=== PATIENT | female | born 1940 | race African-American/Black ===

== ENCOUNTER 2017-04-18 13:27 | Outpatient (CLI) | payer MEDICARE, MEDICAID ==
--- NOTE | 2017-04-18 15:57 | MRI ---
MRI OF THE BRAIN WITHOUT CONTRAST 04/18/17 COMPARISON: 08/18/15 HISTORY: Right sided brain lesion. Followup exam. Likely cavernoma with hemorrhage. TECHNIQUE: Multiplanar and multisequence MRI images were obtained of the brain without contrast. FINDINGS: There is a lesion in the right parietal lobe which demonstrates susceptibility artifact consistent wi th hemosiderin deposition. This measures approximately 1.2 cm in greatest dimension. There is a small amount of adjacent high FLAIR signal. The previously seen high T1 signal within the lesion has resol fidencio. There are scattered foci of high FLAIR signal in the subcortical and periventricular white matte r, likely secondary to small vessel ischemic disease. There is no evidence of hydrocephalus, intracranial hemorrhage or extra-axial fluid collection. No re stricted diffusion seen to suggest an acute infarction. The expected flow voids are present. The cory us callosum, pituitary, and craniocervical junction are unremarkable. IMPRESSION: Stable right parietal lobe mass which represent a small cavernoma. The blood products have evolved wi th the resorption of the high T1 component of the blood products seen on the prior exam. POS: [facility]
== END 2017-04-18 13:28 | disposition home or self-care (01) ==
LOC: TBSIIMAG 13:27
PROVIDERS: ATTEND Surgery
DX: D33.2 Benign neoplasm of brain, unspecified (principal); R51 Headache; R91.8 Other nonspecific abnormal finding of lung field
CPT/HCPCS: 70551; 70553

== ENCOUNTER 2017-07-12 09:11 | Outpatient (CLI) | payer MEDICARE, MEDICAID ==
--- NOTE | 2017-07-12 12:20 | CT ---
CT ABDOMEN AND PELVIS WITH CONTRAST: HISTORY: Right lower quadrant. COMPARISON: 03/23/15. FINDINGS: Mild atelectasis is present at the lung bases. Gallbladder is surgically absent with associated dist ention of the biliary system. There is prominent calcification throughout the arterial structures. Diverticula arise from the colon without adjacent inflammation. Abdominal fat protrudes into an umbi lical hernia that does not contain bowel. There are prominent degenerative changes of the lumbar spi ne. Projecting inferiorly from the cecal base is a fluid-filled tubular structure with subtlely thickened durham and adjacent stranding. It measures up to 0.8 cm. No free air or free fluid. IMPRESSION: 1. Mild noncomplicated acute appendicitis. 2. Diverticulosis. 3. Atherosclerosis. Findings were called to Lorena at the office of Dr. Borrego at 1117 hours. CODE CR POS: [facility]
== END 2017-07-12 09:12 | disposition home or self-care (01) ==
LOC: CT 09:11
PROVIDERS: ATTEND Family Medicine
DX: R10.9 Unspecified abdominal pain (principal); K35.80 Unspecified acute appendicitis; K57.90 Diverticulosis of intestine, part unspecified, without perforation or abscess without bleeding; I70.90 Unspecified atherosclerosis
CPT/HCPCS: 74177

== ENCOUNTER 2017-07-13 13:40 | Inpatient (IN) | payer MEDICARE, MEDICAID ==
[2017-07-13] MEDS ORDERED: Lidocaine 1% PF 5 ML VIAL ONE (14:46)
[2017-07-13] MEDS ORDERED: Glycopyrrolate 0.2 MG/ML 5 ML SYRINGE ONE (14:46)
[2017-07-13] MEDS ORDERED: Ondansetron HCl/PF 4 MG/2 ML Vial ONE (14:46)
[2017-07-13] MEDS ORDERED: Esmolol 100 MG/10 ML VIAL ONE (14:46)
[2017-07-13] MEDS ORDERED: PHENYLEPHRINE-NS 100 MCG/ML 10 ML SYRINGE ONE (14:46)
[2017-07-13] MEDS ORDERED: Ketorolac Tromethamine 30 MG/ML VIAL ONE ×2 (14:46→16:03)
[2017-07-13] MEDS ORDERED: PROPOFOL 200 MG/20 ML VIAL ONE (14:46)
[2017-07-13 14:55] LABS: #Basophils 0.1 thou/uL (0.0-0.2); #Eosinphils 0.2 thou/uL (0.0-0.7); #Lymphocytes 2.1 thou/uL (1.20-3.40); #Monocytes 0.7 thou/uL (0.11-0.59); #Neutrophils 3.1 thou/uL (1.40-6.50); %Basophils 1.1 % (0.0-1.0); %Eosinophils 2.6 % (0.0-10.0); %Lymphocytes 34.5 % (21.0-51.0); %Monocytes 11.8 % (0.0-10.0); Hemoglobin 10.9 g/dL (12.0-16.0); Mean Corpuscular HGB CONC 35.1 g/dL (32.0-36.0); Mean Corpuscular Hemoglobin 30.3 pg (27.0-31.0); Mean Corpuscular Volume 86.3 fl (81.0-99.0); Mean Platelet Volume 9.4 fL (7.4-10.4); Platelet Count 165 thou/uL (130-400); RBC Distribution Width 13.7 % (11.5-14.5); Red Blood Cell (RBC) Count 3.59 mill/uL (4.20-5.40); White Blood Cell (WBC) Count 6.2 thou/uL (4.8-10.8)
[2017-07-13 15:12] LABS: ALT (SGPT) Less than 7 U/L (8-55); AST (SGOT) 18 U/L (5-34); Alkaline Phosphatase 132 U/L (40-150); Anion Gap 13 mmol/L (10-20); BUN (Urea Nitrogen) 35 mg/dL (9.8-20.1); Bilirubin, Total 0.3 mg/dL (0.2-1.2); Calc. Creatinine Clearance 0 mL/min (70-130); Calcium 9.4 mg/dL (7.8-10.44); Carbon Dioxide 28 mmol/L (23-31); Chloride 100 mmol/L (98-107); Estimated GFR-MDRD 40; Globulin 4.2 g/dL (2.4-3.5); Glucose 94 mg/dL (83-110); Potassium 3.7 mmol/L (3.5-5.1); Protein, Total 8.2 g/dL (6.0-8.3); Sodium 137 mmol/L (136-145)
--- NOTE | 2017-07-13 15:47 | HP ---
HISTORY OF PRESENT ILLNESS: A 77-year-old black female who lives in [place], lives alone. She is wido wed. She has had generalized abdominal pain, seen Dr. Sheila Borrego about this. Dr. Sheila Borrego obtai faith a CAT scan revealing appendicitis. Dr. Borrego called me and patient was sent to outpatient surgery . The patient has exquisite right lower quadrant tenderness, positive Rovsing's. She suffered anore fletcher and nausea. She has not had a fever. Laboratories obtained reveal baseline chronic kidney disea se. BUN 28, creatinine 1.51, sodium 142 and potassium 4.1. White count 6 and hemoglobin 10.9. ALLERGIES: PEANUTS, HYDROCODONE causes rash and PECANS. MEDICATIONS: Allopurinol, atorvastatin, lovastatin, Calcitriol, carbidopa and levodopa, colchicine, dicyclomine, donepezil, ergocalciferol, Lasix, gabapentin, Zaroxolyn, multivitamin, paroxetine, potas sium chloride, clonidine, sulfasalazine, tizanidine and tramadol. TOBACCO: None. ALCOHOL: None. PAST SURGICAL HISTORY: Cholecystectomy laparoscopic in 2014, total abdominal hysterectomy, bilateral salpingo-oophorectomy in 1971, eye surgery and colonoscopies in the past. PAST MEDICAL HISTORY: Hypertension; Parkinson's; diastolic dysfunction; normal echocardiogram, 60% t o 65% ejection fraction last year; pulmonary hypertension; rheumatoid arthritis; gout; dyslipidemia a nd obesity. REVIEW OF SYSTEMS: Ten-point noncontributory otherwise. PHYSICAL EXAMINATION: HEENT: Sclerae nonicteric. SKIN: Nonjaundiced. LUNGS: Clear to auscultation. CARDIAC: Regular rate and rhythm without murmur or gallop. ABDOMEN: Soft, tenderness in right lower quadrant, guarding, rebound. EXTREMITIES: Unremarkable. ASSESSMENT AND PLAN: Acute appendicitis. Recommend laparoscopic video appendectomy. Risk of infect ion, bleeding, visceral injury and open procedure discussed, she consents. We will plan home as an o utpatient if situation allows. Questions answered.
[2017-07-13] MEDS ORDERED: Scopolamine 1.5 mg/72 hour Patch ONE (16:02)
[2017-07-13] MEDS ORDERED: Piperacillin/Tazobactam 3.375 GM in Sodium Chloride 0.9% 100 ML IVPB SCH (16:15)
[2017-07-13] MEDS ORDERED: Ketorolac Tromethamine 30 MG/ML VIAL IVP SCH (16:15)
[2017-07-13] MEDS ORDERED: Acetaminophen 1,000 MG in Premix Bag 1 BAG IVPB SCH (16:15)
[2017-07-13] MEDS ORDERED: Scopolamine 1.5 mg/72 hour Patch TOP SCH (16:15)
[2017-07-13] MEDS ORDERED: Bupivacaine HCl 0.5%/Epinephrine 1:200,000/PF 30 ml Vial ONE (17:40)
[2017-07-13] MEDS ORDERED: Midazolam HCl 2 mg/2 ml Vial ONE (18:02)
[2017-07-13] MEDS ORDERED: Fentanyl 250 MCG/5 ML VIAL ONE ×2 (18:02→20:44)
[2017-07-13] MEDS ORDERED: HYDROmorphone 0.5 MG/0.5 ML SYRINGE ONE (18:52)
[2017-07-13] MEDS ORDERED: Dextrose 5% in Water 1,000 ML IV PRN (19:01)
[2017-07-13] MEDS ORDERED: hydrALAZINE 20 MG/ML VIAL SLOW IVP PRN (19:01)
[2017-07-13] MEDS ORDERED: Ondansetron ODT 4 MG TAB PO PRN (19:01)
[2017-07-13] MEDS ORDERED: Morphine 4 MG/ML Carpuject IVP PRN (19:01)
[2017-07-13] MEDS ORDERED: Dextrose 50% Abboject 50 ML SYRINGE SLOW IVP PRN (19:01)
[2017-07-13] MEDS ORDERED: Ondansetron HCl/PF 4 MG/2 ML Vial IVP PRN (19:01)
[2017-07-13] MEDS ORDERED: traMADol HCl 50 MG TAB PO PRN ×2 (19:05→19:06)
[2017-07-13] MEDS ORDERED: Acetaminophen 500 MG TAB PO PRN (19:05)
[2017-07-13] MEDS ORDERED: cloNIDine 0.1 MG TAB PO PRN (19:06)
[2017-07-13] MEDS ORDERED: Dicyclomine 20 MG TAB PO PRN (19:06)
[2017-07-13] MEDS ORDERED: Metolazone 2.5 MG TAB PO PRN (19:06)
[2017-07-13] MEDS ORDERED: Colchicine 0.6 MG TAB PO PRN (19:30)
[2017-07-13] MEDS ORDERED: D5 1/2 NS w/20 mEq KCL 1,000 ML ONE (20:50)
[2017-07-13] MEDS ORDERED: Donepezil HCl 5 MG TAB PO SCH (21:00)
[2017-07-13] MEDS ORDERED: Famotidine 20 MG TAB PO SCH (21:00)
[2017-07-13] MEDS ORDERED: tiZANidine HCl 4 MG TAB PO PRN (21:00)
[2017-07-13] MEDS ORDERED: Atorvastatin Calcium 40 MG TAB PO SCH (21:00)
--- NOTE | 2017-07-13 22:57 | OP ---
DATE OF OPERATION: 07/13/2017 PREOPERATIVE DIAGNOSIS: Acute appendicitis. POSTOPERATIVE DIAGNOSIS: Acute appendicitis. PROCEDURE: Laparoscopic video appendectomy. SURGEON: Solis Garcia M.D. ANESTHESIA: General, local, 0.5% Marcaine with epinephrine, 30 mL. PROCEDURE IN DETAIL: Patient was taken to the operating room, where under general anesthesia, North catheter placed at the beginning of the procedure, removed at the end. Abdomen was prepared with Chl oraPrep, draped in routine fashion. Local anesthetic 0.5% Marcaine with epinephrine infiltrated into skin and subcutaneous tissue about all port sites. Infraumbilical incision made. Pneumoperitoneum to 15 mmHg obtained with a Veress needle, replacing it with a 5-port laparoscope inserted. Right lat eral subcostal incision made and a 5-port placed. Suprapubic incision made in a 12-port plate. Appe ndix was acutely inflamed with early appendicitis. Mesoappendix was taken down with the LigaSure to the stump of the appendix, dividing Endo-MICA blue load 45-stapler. Stapled cecal stump was bleeding and Hemoclips applied obtaining good hemostasis. Irrigant and pneumoperitoneum evacuated after GraNe e needle was used to approximate the suprapubic fascia with 0 Vicryl. All instruments removed and al l skin incisions approximated with interrupted subdermal 4-0 Monocryl and DermaGlue applied.
[2017-07-13] MEDS: Sodium Chloride 0.9% 1,000 ML IV SCH (23:22)
[2017-07-13] MEDS: D5 1/2 NS w/20 mEq KCL 1,000 ML IV SCH (23:22)
[2017-07-13] MEDS: Colchicine 0.6 MG TAB PO SCH (23:27)
[2017-07-13] MEDS: Furosemide 80 MG TAB PO SCH (23:27)
[2017-07-13] MEDS: Carbidopa/Levodopa CR 50-200 mg Tablet PO SCH (23:27)
[2017-07-14] MEDS: Sodium Chloride 0.9% 1,000 ML IV SCH ×2 (01:41→09:29)
[2017-07-14 01:54] VITALS: BMI 40.2
[2017-07-14] MEDS: traMADol HCl 50 MG TAB PO PRN ×2 (05:51→12:21)
[2017-07-14] MEDS: D5 1/2 NS w/20 mEq KCL 1,000 ML IV SCH (05:56)
[2017-07-14 06:11] LABS: #Eosinphils 0.2 thou/uL (0.0-0.7); #Lymphocytes 1.8 thou/uL (1.20-3.40); #Monocytes 0.7 thou/uL (0.11-0.59); #Neutrophils 3.3 thou/uL (1.40-6.50); %Basophils 0.5 % (0.0-1.0); %Eosinophils 2.9 % (0.0-10.0); %Lymphocytes 29.9 % (21.0-51.0); %Monocytes 11.1 % (0.0-10.0); %Neutrophils 55.5 % (42.0-75.0); Hemoglobin 10.8 g/dL (12.0-16.0); Mean Corpuscular HGB CONC 34.8 g/dL (32.0-36.0); Mean Corpuscular Hemoglobin 30.2 pg (27.0-31.0); Mean Corpuscular Volume 86.8 fl (81.0-99.0); Platelet Count 165 thou/uL (130-400); RBC Distribution Width 13.7 % (11.5-14.5); Red Blood Cell (RBC) Count 3.57 mill/uL (4.20-5.40); White Blood Cell (WBC) Count 5.9 thou/uL (4.8-10.8)
[2017-07-14 06:22] LABS: Anion Gap 14 mmol/L (10-20); BUN (Urea Nitrogen) 35 mg/dL (9.8-20.1); Calc. Creatinine Clearance 39 mL/min (70-130); Calcium 8.9 mg/dL (7.8-10.44); Carbon Dioxide 23 mmol/L (23-31); Chloride 103 mmol/L (98-107); Estimated GFR-MDRD 34; Glucose 134 mg/dL (83-110); Sodium 136 mmol/L (136-145)
[2017-07-14] MEDS ORDERED: sulfaSALAzine 500 MG TAB PO SCH (08:00)
[2017-07-14] MEDS ORDERED: PARoxetine 20 MG TAB PO SCH (09:00)
[2017-07-14] MEDS ORDERED: Calcitriol 0.25 MCG CAP PO SCH (09:00)
[2017-07-14] MEDS ORDERED: Enoxaparin Sodium 30 MG/0.3 ML SYRINGE SC SCH (09:00)
[2017-07-14] MEDS ORDERED: Potassium Chloride 8 MEQ TAB PO SCH (09:00)
[2017-07-14] MEDS ORDERED: Allopurinol 100 MG TAB PO SCH (09:00)
[2017-07-14] MEDS ORDERED: Multivit, Therapeutic 1 TAB PO SCH (09:00)
[2017-07-14] MEDS ORDERED: Polyethylene Glycol 3350 17 GM Packet PO SCH (09:00)
[2017-07-14] MEDS: Carbidopa/Levodopa CR 50-200 mg Tablet PO SCH ×2 (09:28→16:00)
[2017-07-14] MEDS: Colchicine 0.6 MG TAB PO SCH (09:28)
[2017-07-14] MEDS: Furosemide 80 MG TAB PO SCH (09:28)
[2017-07-14 16:09] VITALS: BP 144/72; TEMP 98.4
--- NOTE | 2017-07-14 21:07 | PRG ---
DATE OF SERVICE: 07/14/2017 SUBJECTIVE: Nicola Mooney has done well after laparoscopic appendectomy. Her labs are normal th is morning. OBJECTIVE: VITAL SIGNS: Temperature 98.4 degrees, heart rate 83, blood pressure 144/72. LUNGS: Clear to auscultation. CARDIAC: Regular rate and rhythm without murmur or gallop. ABDOMEN: Soft, nontender. Surgical laparoscopic trocar site wounds look good. Expected postoperati ve tenderness. LABORATORY DATA: White count is 5, hemoglobin 10.8. Basic metabolic profile normal with chronic alexandr al insufficiency numbers, 35 of BUN and creatinine 1.74 and normal for her. The patient tolerated he r diet. She currently has some pain control with analgesics. ASSESSMENT AND PLAN: Doing well postoperatively. Her family is present and the patient wants to go home. She will be active, ambulatory and diet as tolerated. No activity restrictions. Follow up in my office in 2 weeks
--- NOTE | 2017-07-14 23:10 | DIS ---
DATE OF ADMISSION: 07/13/2017 DATE OF DISCHARGE: 07/14/2017 DISCHARGE DIAGNOSIS: Acute appendicitis. PROCEDURES: Laparoscopic video appendectomy. DISCHARGE MEDICATIONS: Resume home medications. List extensive, please see her history and physical . In addition, she will take Ultram, Motrin, and Tylenol as able. She will follow up in my office i n 2 weeks. Diet and activity as tolerated. No activity restrictions. Encourage to be ambulatory. HOSPITAL COURSE: Ms. Mooney is a 77-year-old female followed by Dr. Sheila Borrego for some time zahida g abdominal pain, obtain a CAT scan, verifying appendicitis. Patient's although having a chronic abd ominal pain developed worsening pain in the last day or two. Dr. Borrego send her to my office. I sent her to the hospital and then laparoscopic appendectomy was performed, early appendicitis noted. Pos toperative antibiotics are not necessary. Patient because it was late at night and living alone, she demanded admission, she was kept overnight and did well and discharged to home with follow up in my office in 2-3 weeks. Resume her home medications and activities.
[2017-07-16] MEDS ORDERED: Ergocalciferol 1.25 MG(50,000 UNITS) CAP PO SCH (09:00)
--- NOTE | 2017-08-16 19:30 | EKG ---
Test Reason : PREOP Blood Pressure : / mmHG Vent. Rate : 084 BPM Atrial Rate : 084 BPM P-R Int : 156 ms QRS Dur : 088 ms QT Int : 386 ms P-R-T Axes : 072 047 059 degrees QTc Int : 456 ms Normal sinus rhythm Nonspecific T wave abnormality Abnormal ECG When compared with ECG of 30-DEC-2014 16:15, QT has shortened Confirmed by DR. Russell FELIZ ([id number]) on 08/16/2017 7:29:53 PM Referred By: CHRIS Confirmed By:DR. Russell FELIZ
== END 2017-07-14 18:05 | disposition home or self-care (01) | DRG 343 ==
LOC: SDC 13:40 → SURG A 20:46
PROVIDERS: ADMIT Specialist; ATTEND Specialist
PROC: 0DTJ4ZZ Resection of Appendix, Percutaneous Endoscopic Approach (ICD-10-PCS; principal; 2017-07-13)
DX: K35.80 Unspecified acute appendicitis (principal); E11.22 Type 2 diabetes mellitus with diabetic chronic kidney disease; G20 Parkinson's disease; I27.20 Pulmonary hypertension, unspecified; R63.0 Anorexia; I12.9 Hypertensive chronic kidney disease with stage 1 through stage 4 chronic kidney disease, or unspecified chronic kidney disease; N18.9 Chronic kidney disease, unspecified; M10.9 Gout, unspecified; E66.9 Obesity, unspecified; E78.5 Hyperlipidemia, unspecified; M06.9 Rheumatoid arthritis, unspecified; Z68.37 Body mass index [BMI] 37.0-37.9, adult; R10.9 Unspecified abdominal pain; K57.90 Diverticulosis of intestine, part unspecified, without perforation or abscess without bleeding; I70.90 Unspecified atherosclerosis
CPT/HCPCS: 36415; 74177; 80048; 80053; 82565; 85025; 88304; 93005; 93010; 96374; J0131; J0670; J1170; J1650; J1885; J2001; J2250; J2270; J2405; J2543; J2704; J3010; J7050

== ENCOUNTER 2017-10-03 12:50 | Emergency (ER) | payer MEDICARE, MEDICAID ==
[2017-10-03] MEDS ORDERED: Acetaminophen 500 MG TAB ONE (13:15)
--- NOTE | 2017-10-03 13:36 | CT ---
HEAD CT WITHOUT CONTRAST: Date: 10/03/17 HISTORY: Injury. Pain. Tripped and fell at home. COMPARISON: 02/01/15. TECHNIQUE: A noncontrast head CT is performed from the skull base to the skull vertex. FINDINGS: Persistent hyperdensity along the medial right frontal lobe, close to the vertex. Small cavernoma is favored given chronicity. No definite parenchymal hemorrhage. No extra-axial hematoma. No midline petr ft. Basilar cisterns are patent. Age-appropriate atrophy. Cortical chatterjee-white matter differentiation is preserved. No evidence of hydrocephalus. Calvarium is intact. Frontal scalp hematoma is present. Subcutaneous em physema due to laceration is noted. No obvious radiopaque foreign bodies. Adequate aeration of the si nuses and mastoid air cells. Stable hypodensity along the anterior falx due to intracranial lipoma. IMPRESSION: Post-traumatic scalp hematoma. No intracranial post-traumatic sequelae. POS: [facility]
[2017-10-03] MEDS ORDERED: Lidocaine 1% w/Epinephrine 1:100K 20 ML VIAL ONE (14:21)
--- NOTE | 2017-10-03 15:08 | CT ---
CT CERVICAL SPINE WITHOUT CONTRAST: Date: 10/03/17 HISTORY: Trauma. Pain. COMPARISON: CT cervical spine from 2015. FINDINGS: There is reversal of normal cervical lordosis, worsened from the comparison examination. This is due to osseous fusion and bony bridging from C5-C6. There is also posterior element fusion C2-3 on the ri ght and left. Posterior osseous fusion C4-5 on the left. Advanced degenerative disc space height loss at C6-7, as well as T1-2, progressed from the comparison examination. The lung apices are clear. The thyroid is heterogeneous with a hypodense mass. The occipital condyles are intact, although degenerative. Atlanto-occipital joints severely degenerat sera. The skull base is without fracture. Odontoid process is without fracture. No acute displaced fracture of the cervical spine. IMPRESSION: 1. Severe degenerative changes. No acute fracture or malalignment. 2. Hypodense mass in right lobe of thyroid, for which a nonemergent follow-up ultrasound is recommen ded. POS: [facility]
== END 2017-10-03 16:47 | disposition home or self-care (01) ==
LOC: ERS 12:50
DX: S01.81XA Laceration without foreign body of other part of head, initial encounter (principal); E07.89 Other specified disorders of thyroid; M46.92 Unspecified inflammatory spondylopathy, cervical region; K21.9 Gastro-esophageal reflux disease without esophagitis; M10.9 Gout, unspecified; I11.0 Hypertensive heart disease with heart failure; I50.9 Heart failure, unspecified; F32.9 Major depressive disorder, single episode, unspecified; W01.0XXA Fall on same level from slipping, tripping and stumbling without subsequent striking against object, initial encounter
CPT/HCPCS: 12013; 70450; 72125; J2001

== ENCOUNTER 2017-10-18 09:16 | Outpatient (CLI) | payer MEDICARE, MEDICAID ==
--- NOTE | 2017-10-18 11:26 | CT ---
CT OF ABDOMEN AND PELVIS PERFORMED WITHOUT CONTRAST ENHANCEMENT: Date: 10/18/17 HISTORY: Right lower quadrant pain and diarrhea. History of an appendectomy in July 2017. COMPARISON: CT examination of 07/12/17. FINDINGS: Lung bases show some minimal atelectasis or scar. The liver, spleen, and pancreas regions appear unremarkable on this noncontrast study. The gallbladde r has been removed. Right and left adrenal glands are normal in appearance. Hypodensity within the posterior cortex of th e right kidney is statistically most likely a cyst. No obstruction or evidence of renal or ureteral c alculi. No significant periaortic or mesenteric adenopathy. Some colonic diverticulosis is noted. CT of pelvis was performed without contrast enhancement. Post appendectomy changes are present. No si gns of any abscess or fluid collection. Postop hysterectomy changes are seen. Small, fat-containing p eriumbilical hernia is present. There is scoliotic change to the spine and marked arthritic changes to the lower lumbar spine. IMPRESSION: 1. Colonic diverticulosis. 2. Small, fat-containing periumbilical hernia. 3. Post appendectomy change. 4. No acute abnormalities of the abdomen or pelvis. POS: [facility]
== END 2017-10-18 09:17 | disposition home or self-care (01) ==
LOC: CT 09:16
PROVIDERS: ATTEND Specialist
DX: R10.2 Pelvic and perineal pain (principal); Z90.49 Acquired absence of other specified parts of digestive tract; K57.30 Diverticulosis of large intestine without perforation or abscess without bleeding; K42.9 Umbilical hernia without obstruction or gangrene; Z98.890 Other specified postprocedural states
CPT/HCPCS: 74176

== ENCOUNTER 2017-10-31 09:40 | Outpatient (CLI) | payer MEDICARE, MEDICAID ==
[2017-10-31] MEDS ORDERED: Gadobenate Dimeglumine 529 MG/1 ML (20ML VIAL) ONE (10:04)
--- NOTE | 2017-10-31 12:58 | MRI ---
BRAIN MRI WITH AND WITHOUT CONTRAST: 10/31/2017 HISTORY: Re-evaluate brain lesion. COMPARISON: 01/24/2017 and 08/18/2015 TECHNIQUE: Multiplanar, multisequence MR imaging of the brain is provided with and without contrast. FINDINGS: The diffusion-weighted imaging demonstrates no evidence for acute infarction. There is a focal area of blooming artifact involving the posteromedial aspect of the right frontal lo be, as seen on prior imaging, most consistent with a stable cavernoma. On the axial FLAIR imaging, there is increased signal intensity involving a few cortical sulci in the posterior right parietal occipital lobe, medially, best seen on axial image 22, a new finding. There is no midline shift or mass effect. No ventricular enlargement is seen. The imaged paranasal sinuses and mastoid air cells are well aerated. Arterial flow voids at the axia l level of the skull base demonstrates a relatively hypoplastic basilar artery and vertebral arteries . Post contrast imaging demonstrates a small area of linear enhancement into the above described focus of blooming artifact in the posteromedial right frontal region. There are a few new foci of increased T2 signal within the subcortical white matter of the occipital/ parietal lobe on the right, in the region of the above described new increased signal intensity withi n the cortical sulci in this region. There are scattered small foci of increased T2 and FLAIR signal, suggesting small vessel disease. IMPRESSION: 1. Stable area of blooming artifact, corresponding to a heterogeneously hypointense lesion on T2 rosi ghted imaging, with a peripheral low T2 signal rim, measuring 9 mm, suggesting a stable cavernoma. 2. There are new areas of T2/FLAIR hyperintensity within the subcortical white matter of the right p arietal occipital region, with adjacent areas of increased FLAIR in a few cortical sulci. This can b e seen on the basis of subarachnoid hemorrhage or infection. Question history of recent trauma. Devika rt-term follow-up MR imaging is advised, to document resolution. Results called to Levi Benavidez at 11:35 a.m. on 10/31/2017. KEYONA PENNINGTON POS: [facility]
== END 2017-10-31 09:41 | disposition home or self-care (01) ==
LOC: TBSIIMAG 09:40
PROVIDERS: ATTEND Surgery
DX: D18.01 Hemangioma of skin and subcutaneous tissue (principal); M48.9 Spondylopathy, unspecified
CPT/HCPCS: 70553; A9579

== ENCOUNTER 2018-04-11 14:21 | Inpatient (IN) | payer MEDICARE, MEDICAID ==
[~2018-04-11 14:21] MED LIST: Gadobenate Dimeglumine 529 MG/1 ML (20ML VIAL) ONE
[2018-04-11 16:05] LABS: #Lymphocytes 1.9 thou/uL (1.20-3.40); #Monocytes 0.4 thou/uL (0.11-0.59); %Basophils 0.1 % (0.0-1.0); %Eosinophils 0.5 % (0.0-10.0); %Lymphocytes 30.2 % (21.0-51.0); %Monocytes 6.3 % (0.0-10.0); %Neutrophils 62.9 % (42.0-75.0); Hemoglobin 10.8 g/dL (12.0-16.0); Mean Corpuscular HGB CONC 35.8 g/dL (32.0-36.0); Mean Corpuscular Hemoglobin 31.1 pg (27.0-31.0); Mean Corpuscular Volume 86.7 fL (78.0-98.0); Mean Platelet Volume 9.9 fL (7.4-10.4); Platelet Count 184 thou/uL (130-400); RBC Distribution Width 13.2 % (11.5-14.5); Red Blood Cell (RBC) Count 3.49 mill/uL (4.20-5.40); White Blood Cell (WBC) Count 6.4 thou/uL (4.8-10.8)
[2018-04-11 16:07] LABS: INR-International Normal Ratio 1.1; PTT 38.6 SEC (22.9-36.1); Prothrombin Time 14.7 SEC (12.0-14.7)
[2018-04-11 16:12] LABS: ALT (SGPT) Less than 7 U/L (8-55); AST (SGOT) 11 U/L (5-34); Albumin 3.8 g/dL (3.4-4.8); Alkaline Phosphatase 90 U/L (40-150); Anion Gap 13 mmol/L (10-20); BUN (Urea Nitrogen) 16 mg/dL (9.8-20.1); Bilirubin, Total 0.3 mg/dL (0.2-1.2); CK (CPK) 60 U/L (29-168); Calc. Creatinine Clearance 0 mL/min (70-130); Calcium 9.6 mg/dL (7.8-10.44); Carbon Dioxide 27 mmol/L (23-31); Chloride 100 mmol/L (98-107); Estimated GFR-MDRD 47; Globulin 3.9 g/dL (2.4-3.5); Glucose 92 mg/dL (83-110); Protein, Total 7.7 g/dL (6.0-8.3); Sodium 136 mmol/L (136-145)
[2018-04-11 16:16] LABS: CKMB 0.6 ng/mL (0-6.6); Troponin I Less than 0.010 ng/mL (< 0.028)
--- NOTE | 2018-04-11 16:23 | CT ---
HEAD CT WITHOUT CONTRAST: DATE: 04/11/2018. COMPARISON: 10/03/2017. HISTORY: Left-sided weakness that began upon waking this morning. TECHNIQUE: Axial CT imaging is obtained at 5 mm intervals from the vertex through the skull base without contras t. FINDINGS: There is a stable hyperdense lesion near the vertex measuring 7 mm to the right of midline, consisten t with the patient's history of cavernoma in this region. Imaged paranasal sinuses/mastoid air cells well aerated. No displaced calvarial fracture noted. There is new deep and subcortical white matter hypodensity in the parietal region near the vertex on the right. No intracranial hemorrhage is noted. IMPRESSION: 1. No intracranial hemorrhage. New white matter hypodensity near the vertex involving the right par ietal region as detailed above. This is of uncertain etiology. Of note, there was signal abnormalit y on an MRI in this region on 10/31/2017. 2. No intracranial hemorrhage or midline shift. No mass effect. IMPRESSION: 1. No acute hemorrhage. 2. New nonspecific hypodensity in the parietal, subcortical, and deep white matter on the right. Th is suggests edema on the basis of residual inflammatory or posttraumatic change of right parietal lob e when compared to 10/31/2017 brain MRI. Repeat MRI with and without contrast is advised. Results called to Dr. Hoskins at 2:55 p.m. 04/11/2015. CODE CR POS: [facility]
[2018-04-11] MEDS ORDERED: Senokot S 8.6-50 MG TAB PO PRN (17:43)
[2018-04-11] MEDS ORDERED: hydrALAZINE 20 MG/ML VIAL SLOW IVP PRN (17:43)
[2018-04-11] MEDS ORDERED: Acetaminophen 650 MG Suppository PR PRN (17:43)
[2018-04-11 19:03] LABS: Bilirubin Small (Negative); Blood, Urine Negative (Negative); Clarity CLOUDY (Clear); Glucose, Urine (Dipstick) Negative (Negative); Leukocyte Small (Negative); Nitrite Negative (Negative); Protein, Urine (Dipstick) 100 mg/dL (Neg-Trace); Specific Gravity, Urine 1.022 (1.002-1.036); Urobilinogen 0.2 mg/dL (0.2-1.0); pH, Urine 6.5 (5.0-9.0)
[2018-04-11 19:04] LABS: Bacteria/HPF Rare-Few HPF (None Seen); Hyaline Casts/LPF 7-10 HYALINE CAST LPF (0-3 Hyaline); Pathc Cast-AUWi Flag 0.87 (0-2.49)
[2018-04-11 19:13] LABS: RBC/HPF None Seen HPF (0-3)
[2018-04-11] MEDS ORDERED: Labetalol HCl 100 MG/20 ML VIAL ONE (19:36)
--- NOTE | 2018-04-11 19:49 | HP ---
PRIMARY CARE PROVIDER: Sheila Borrego MD CHIEF COMPLAINT: Weakness. HISTORY OF PRESENT ILLNESS: Ms. Mooney is a pleasant 77-year-old lady, who was seen at [facility] on April 11, 2018. The patient is able to provide some history. Collateral history was obtained from discussion with family members by the bedside, discussion with the emergency room physician and review of medical records. Ms. Mooney reportedly had left arm and left leg discoordination and weakness since waking up this morning. She was last seen to be normal last night. She also reportedly had decreased peripheral vision in the left eye. She denies any chest pain or shortness of breath. She reports that she has difficulties seeing out of her left eye but is unable to elaborate further. She denies any fevers or chills. She denies any urinary symptoms. She denies any nausea or vomiting. REVIEW OF SYSTEMS: All other systems reviewed and found to be negative. PAST MEDICAL HISTORY: Hypertension, gastroesophageal reflux disease, lumbago, lumbar stenosis, osteoarthritis, insomnia, gout, lumbosacral spondylosis, carpal tunnel, Parkinson disease, congestive heart failure, dementia, rheumatoid arthritis and subarachnoid bleed in 2014. PAST SURGICAL HISTORY: Hysterectomy, right cataract surgery, cholecystectomy, D and C x3, left knee surgery and appendectomy. PSYCHIATRIC HISTORY: Depression. SOCIAL HISTORY: The patient denies tobacco use, alcohol use or recreational drug use. CODE STATUS: I discussed her code status. She is full code. FAMILY HISTORY: The patient denies any family history of premature coronary artery disease. ALLERGIES: 1. ASPIRIN. 2. HYDROCODONE. 3. IBUPROFEN. 4. PEANUT. 5. RED DYE. 6. VICODIN. CURRENT MEDICATIONS: 1. Sulfasalazine 500 mg tablets 2 tablets 2 times a day. 2. Carbidopa/levodopa 25/100 mg tablets 2 tablets 3 times a day. 3. Allopurinol 100 mg daily. 4. Donepezil 10 mg 2 times a day. 5. Atorvastatin 40 mg at bedtime. 6. Carvedilol 12.5 mg 2 times a day. 7. Fluoxetine 40 mg daily. 8. Colchicine 0.6 mg tablets, as needed. 9. Gabapentin 300 mg 2 times a day. 10. Tizanidine 4 mg at bedtime. 11. Calcitriol 0.25 mcg daily. PHYSICAL EXAMINATION: GENERAL: On examination, Ms. Mooney is awake and alert, not in acute distress. VITAL SIGNS: Blood pressure is 151/89, pulse 97, respiratory rate 16, and oxygen saturation 94% on room air. T-max was 100.1 in the emergency room. EYES: No scleral icterus. No conjunctival pallor. ENT: Moist mucosal membranes. No oropharyngeal erythema or exudates. NECK: Supple, nontender, trachea is midline. RESPIRATORY: Accessory muscles of breathing are not active. Chest wall movements are symmetric bilaterally. Lungs are clear to auscultation without wheeze, rhonchi or crepitations. CARDIOVASCULAR: S1 and S2 are heard, regular. Peripheral pulses palpable. No carotid bruit, no pericardial rub. ABDOMEN: Soft, nontender, bowel sounds are heard. NEUROLOGIC: Full neurologic examination was not possible secondary to the patient's noncooperation. I could not test visual man. Pupils are reactive bilaterally. There is no facial droop. She is not moving her left upper extremity and appears to be neglecting it. She is moving her left lower extremity. She is moving right upper and lower extremities. Plantars are downgoing bilaterally. Deep tendon reflexes are 2+. MUSCULOSKELETAL: 4 extremities as described above. SKIN: No rashes or subcutaneous nodules. LYMPHATIC: No cervical lymphadenopathy. PSYCHIATRIC: The patient is oriented to person, place and time. LABORATORY AND DIAGNOSTIC DATA: Ms. Mooney's labs and investigations were reviewed. I reviewed her electrocardiogram, which shows normal sinus rhythm, no ST changes to suggest an acute coronary syndrome. I also reviewed her noncontrast CT scan of the brain, which did not show any acute hemorrhage. She has a white matter hypodensity near the vertex involving the right parietal region, of uncertain etiology. She has normal white count, normocytic anemia with hemoglobin 10.8, normal platelet count, INR 1.1, normal electrolytes, elevated creatinine of 1.31 , last known creatinine 1.44 on December 19, 2017 and an unremarkable liver profile. Troponin I is less than 0.010. ASSESSMENT AND PLAN: Ms. Mooney is a pleasant 77-year-old lady, who was seen at [facility] on April 11, 2018. Her problem list includes: 1. Acute metabolic encephalopathy: Ms. Mooney is presenting with acute encephalopathy, most likely metabolic in etiology, although infection cannot be ruled out given her T-max in the emergency room. She will be admitted to the hospital for further workup. We will check her TSH level, since she had a temperature spike in the emergency room. At this point, I am holding off on antibiotics, but we will order urine studies and blood cultures. 2. Ischemic cerebrovascular accident: Unclear in terms of duration. The patient has received aspirin, which I will continue. I will order stroke workup, including echocardiogram and carotid Dopplers. We will consult Neurology Service for opinion and help with management. 3. Gastroesophageal reflux disease: Appears to be stable. 4. Congestive heart failure: Appears to be stable. 5. Hypertension: I will resume home medications, monitor vital signs and titrate antihypertensives as needed. Many thanks for allowing me to participate in your patient's care. Please feel free to contact me with any questions or concerns. LEVEL OF RISK: High. LEVEL OF COMPLEXITY: High. Job ID: [id number] MTDD
--- NOTE | 2018-04-11 20:44 | ULT ---
ULTRASOUND DOPPLER DUPLEX CAROTID: 04/11/18 HISTORY: Cerebrovascular accident in 77-year-old female. TECHNIQUE: Campbell scale, color flow and spectral analysis, of major arteries of the neck. FINDINGS: The carotid bulbs are deep in the neck and detailed visualization is slightly limited. There is at le ast mild plaque in the proximal internal carotid arteries, including carotid bulbs. No blood flow is detected in the right internal carotid artery. There is blood flow in the right comm on carotid artery and right external carotid artery. The highest peak systolic velocity in the left internal carotid artery is 65 cm/s. No vertebral arter y flow is detected. IMPRESSION: 1. No flow detected in the right internal carotid artery. 2. Bilateral vertebral artery flow is also not detected. 3. No evidence of hemodynamically significant stenosis in the proximal left internal carotid art edilson. POS: [facility]
[2018-04-11] MEDS ORDERED: Atorvastatin Calcium 40 MG TAB PO SCH (21:00)
[2018-04-11] MEDS ORDERED: Carbidopa/Levodopa 25-100 mg Tablet PO SCH (23:30)
[2018-04-11] MEDS: Acetaminophen 325 MG TAB PO PRN (23:38)
[2018-04-12] MEDS ORDERED: Sodium Chloride 0.9% 300 ML IV SCH (03:15)
[2018-04-12 05:26] LABS: Anion Gap 14 mmol/L (10-20); BUN (Urea Nitrogen) 16 mg/dL (9.8-20.1); Calc. Creatinine Clearance 0 mL/min (70-130); Calcium 9.7 mg/dL (7.8-10.44); Carbon Dioxide 24 mmol/L (23-31); Cardiac Risk 2.1 (Less than 4.5); Chloride 101 mmol/L (98-107); Cholesterol 168 mg/dl (< 200 Desired); Estimated GFR-MDRD 55; Glucose 116 mg/dL (83-110); HDL Cholesterol 79 mg/dL (>60 Neg Risk); LDL Cholesterol, Calculated 76 mg/dL; Potassium 4.2 mmol/L (3.5-5.1); Sodium 135 mmol/L (136-145); Triglycerides 65 mg/dL (Less than 150)
[2018-04-12 05:48] LABS: #Lymphocytes 2.2 thou/uL (1.20-3.40); #Monocytes 0.8 thou/uL (0.11-0.59); #Neutrophils 8.6 thou/uL (1.40-6.50); %Eosinophils 0.2 % (0.0-10.0); %Lymphocytes 19.2 % (21.0-51.0); %Monocytes 6.5 % (0.0-10.0); %Neutrophils 74.1 % (42.0-75.0); Hemoglobin 10.8 g/dL (12.0-16.0); Mean Corpuscular HGB CONC 35.5 g/dL (32.0-36.0); Mean Corpuscular Hemoglobin 30.2 pg (27.0-31.0); Mean Corpuscular Volume 85.1 fL (78.0-98.0); PLT Morphology Comment Appears Adequate; Platelet Count 159 thou/uL (130-400); RBC Distribution Width 12.9 % (11.5-14.5); RBC Morphology Normal; Red Blood Cell (RBC) Count 3.58 mill/uL (4.20-5.40); White Blood Cell (WBC) Count 11.6 thou/uL (4.8-10.8)
[2018-04-12 06:09] VITALS: BMI 34.4
[2018-04-12] MEDS: Acetaminophen 325 MG TAB PO PRN (08:30)
[2018-04-12] MEDS ORDERED: Aspirin 325 mg Enteric Coated Tablet PO SCH ×2 (09:00→19:30)
[2018-04-12] MEDS ORDERED: Carbidopa/Levodopa 25-250 mg Tablet PO SCH ×2 (11:00→18:00)
[2018-04-12] MEDS: Acetaminophen 500 MG TAB PO PRN (12:08)
[2018-04-12] MEDS ORDERED: Lorazepam 2 MG/ML VIAL ONE (13:14)
[2018-04-12] MEDS ORDERED: Lorazepam 2 MG/ML VIAL SLOW IVP SCH (13:15)
[2018-04-12] MEDS ORDERED: Allopurinol 100 MG TAB PO SCH (13:15)
[2018-04-12] MEDS ORDERED: tiZANidine HCl 4 MG TAB PO SCH (13:15)
[2018-04-12] MEDS ORDERED: Calcitriol 0.25 MCG CAP PO SCH (13:15)
[2018-04-12] MEDS ORDERED: diphenhydrAMINE 25 MG CAP PO SCH (13:15)
--- NOTE | 2018-04-12 15:09 | CON ---
DATE OF CONSULTATION: 04/12/2018 REFERRING PHYSICIAN: Hospitalist Service. IMPRESSION: 1. Acute stroke with left visual field deficit and neglect suggesting a posterior parietal infarct. 2. Hypertension. 3. Congestive heart failure. 4. Parkinson disease. 5. Hyperlipidemia. PLAN: 1. Continue aspirin. 2. Continue Lipitor. 3. Carotid ultrasound and echocardiogram. HOSPITAL COURSE: Ms. Mooney is a 77-year-old black female, who is a known patient of mine with Parkinson disease. She presented with acute left visual field deficit and some left-sided neglect. She came into the emergency room last night. Her initial CT scan of the brain was unremarkable. Laboratory studies were also fairly unremarkable as well. Her lipid ratio was 2.1. Her vital signs have been notable for a drop in blood pressure to 99/55 this morning. She is without any complaint of headache, nausea, vomiting, vertigo, chest pain, shortness of breath. PHYSICAL EXAMINATION: GENERAL: She is alert and cooperative. Her speech is fluent and clear. NEUROLOGIC: Cranial nerve exam shows left homonymous field cut. Motor exam shows some diminished strength in the left arm, although she does have antigravity strength in it. She has neglect to simultaneous stimulation of the left and right side. Gait is not tested. She had a rest tremor in the right hand. Her clinical exam is consistent with an acute stroke. I agree with current management. I will follow up on the results. Job ID: [id number]
--- NOTE | 2018-04-12 17:53 | PDOC.PN ---
- Subjective Encounter Start Date: 04/12/18 Encounter Start Time: 12:00 Ms. Mooney was seen today in follow-up of left sided weakness. She does not have any complaints today. She has been a bit agitated. She also has noted a tremor- related to Parkinson's disease. - Objective Resuscitation Status - Order Detail: 04/11/18 17:43 Resuscitation Status Routine Resuscitation Status: FULL: Full Resuscitation Discussed with: family MAR Reviewed: Yes Vital Signs & Weight: Vital Signs (12 hours) Temp Pulse Pulse Pulse Resp BP BP 04/12/18 15:38 97.8 F 100 18 04/12/18 08:57 101 H 76 143/78 H 174/69 H 04/12/18 08:24 04/12/18 08:00 98.5 F 88 18 BP Pulse Ox 04/12/18 15:38 206/66 H 92 L 04/12/18 08:57 04/12/18 08:24 187/66 H 04/12/18 08:00 94 L Weight Weight 188 lb 6.4 oz I&O: 04/11/18 04/12/18 04/13/18 06:59 06:59 06:59 Intake Total 300 Balance 300 Result Diagrams: 04/12/18 04:43 04/12/18 04:43 Phys Exam - Physical Examination HEENT: PERRLA Respiratory: no wheezing, no rales, no rhonchi, clear to auscultation bilateral Cardiovascular: RRR, no significant murmur, no rub Gastrointestinal: soft, non-tender, no distention, positive bowel sounds Musculoskeletal: pulses present, edema present trace pedal edema bilaterally + left upper extremity weakness which is mild Dx/Plan (1) Acute CVA (cerebrovascular accident) Code(s): I63.9 - CEREBRAL INFARCTION, UNSPECIFIED Status: Acute (2) Parkinsons disease Code(s): G20 - PARKINSON'S DISEASE Status: Chronic (3) Anxiety Code(s): F41.9 - ANXIETY DISORDER, UNSPECIFIED Status: Chronic (4) Hypertension Code(s): I10 - ESSENTIAL (PRIMARY) HYPERTENSION Status: Acute - Plan * Acute CVA- work-up is in progress- she says she is intolerant to aspirin, so this is being held * MRI- was ordered, but not performed- due to patient no able to be still- will consider CT scan as an alternative in the AM * Carotid doppler results noted- discussed with the family in detail- will consider pursuing CTA of the neck to see if she is a candidate for CEA, however she has CKD. Will consult her Sales Research Analyst to help in managing this if they decide to go forward with the CTA * HTN- not controlled- will add Amlodipine, and continue PRN medications * Parkinson's disease- continue her home medications * Anxiety- Ativan as needed .
[2018-04-12] MEDS ORDERED: Amlodipine 5 MG TAB PO SCH (18:15)
[2018-04-12] MEDS ORDERED: tiZANidine HCl 4 MG TAB PO PRN (21:00)
[2018-04-12] MEDS: Colchicine 0.6 MG TAB PO SCH (21:08)
[2018-04-12] MEDS: Atorvastatin Calcium 40 MG TAB PO SCH (21:08)
[2018-04-12] MEDS: Donepezil HCl 5 MG TAB PO SCH (21:08)
[2018-04-12] MEDS: BENADRYL 25 MG PO SCH (21:08)
[2018-04-12] MEDS ORDERED: Lorazepam 0.5 MG TAB PO SCH (23:00)
[2018-04-12] MEDS ORDERED: Haloperidol Lactate 5 MG/ML VIAL IM SCH (23:59)
[2018-04-13] MEDS ORDERED: Lorazepam 2 MG/ML VIAL IM SCH (02:30)
[2018-04-13] MEDS: Sodium Chloride 0.9% 1,000 ML IV SCH ×3 (06:36→22:32)
[2018-04-13 07:13] LABS: Anion Gap 13 mmol/L (10-20); BUN (Urea Nitrogen) 15 mg/dL (9.8-20.1); Calc. Creatinine Clearance 51 mL/min (70-130); Calcium 9.8 mg/dL (7.8-10.44); Carbon Dioxide 26 mmol/L (23-31); Chloride 101 mmol/L (98-107); Estimated GFR-MDRD 52; Glucose 119 mg/dL (83-110); Potassium 3.6 mmol/L (3.5-5.1); Sodium 136 mmol/L (136-145)
[2018-04-13] MEDS: Colchicine 0.6 MG TAB PO SCH ×2 (08:41→21:41)
[2018-04-13] MEDS: Carbidopa/Levodopa 25-100 mg Tablet PO SCH ×3 (08:42→19:41)
[2018-04-13] MEDS: Calcitriol 0.25 MCG CAP PO SCH (08:42)
[2018-04-13] MEDS: Amlodipine 5 MG TAB PO SCH (08:42)
[2018-04-13] MEDS: Allopurinol 100 MG TAB PO SCH (08:43)
[2018-04-13] MEDS: FLUoxetine HCl 20 MG CAP PO SCH (08:43)
[2018-04-13] MEDS: Aspirin 325 mg Enteric Coated Tablet PO SCH (08:44)
[2018-04-13] MEDS: Multivit, Therapeutic 1 TAB PO SCH (08:44)
[2018-04-13] MEDS ORDERED: FLUoxetine HCl 20 MG CAP PO SCH (09:00)
[2018-04-13] MEDS: Lorazepam 2 MG/ML VIAL SLOW IVP PRN ×2 (10:21→22:33)
[2018-04-13] MEDS: hydrALAZINE 20 MG/ML VIAL SLOW IVP PRN ×2 (10:26→16:16)
--- NOTE | 2018-04-13 12:24 | EKG ---
Test Reason : Blood Pressure : / mmHG Vent. Rate : 076 BPM Atrial Rate : 076 BPM P-R Int : 154 ms QRS Dur : 086 ms QT Int : 408 ms P-R-T Axes : 067 013 090 degrees QTc Int : 459 ms Normal sinus rhythm Possible Left atrial enlargement Borderline ECG Confirmed by JOHNATHAN DU DO ([id number]), book or script editor MIKE STARK ([id number]) on 04/13/2018 12:23:53 PM Referred By: Confirmed By:JOHNTAHAN DU DO
--- NOTE | 2018-04-13 12:49 | CT ---
CTA CAROTID ARTERIES: HISTORY: Abnormal carotid ultrasound: FINDINGS: Contrast-enhanced carotid CTA performed. Two-D and 3D reconstructed images performed on an [employer] 3D work station. CTA images demonstrate visualized lung parenchyma to be unremarkable. Atherosclerotic calcification of the aorta arch is seen. There is extensive heterogeneity seen in the right thyroid lobe concerning for a possible right thyro id mass. The right subclavian artery contains some calcifications. The right common carotid artery is patent. Extensive atherosclerotic plaque is seen in the distal ri ght CCA. The right ICA does not contain significant stenosis. The right proximal ICA is tortuous bu t not occluded. Good flow is seen intracranially. LEFT CAROTID: The left common carotid artery is patent. Some mild atherosclerotic plaque is seen in the origin of the left ICA which is tortuous. There appear to be areas of approximately 30-40% proximal left ICA s tenosis due to calcified plaque. More distally, the left ICA is patent. The right and left vertebral arteries are patent. IMPRESSION: 1. Approximately 30-40% proximal left internal carotid artery stenosis. 2. Bilateral tortuous proximal internal carotid arteries. No evidence of high-grade stenosis seen i n the right or left internal carotid arteries. POS: [facility]
--- NOTE | 2018-04-13 12:49 | PDOC.PN ---
- Subjective Encounter Start Date: 04/13/18 Encounter Start Time: 10:45 Ms. Mooney was seen today in follow-up of acute CVA. She was a bit more calm this morning. She is complaining of itching in the palms or her hands. - Objective Resuscitation Status - Order Detail: 04/11/18 17:43 Resuscitation Status Routine Resuscitation Status: FULL: Full Resuscitation Discussed with: family MAR Reviewed: Yes Vital Signs & Weight: Vital Signs (12 hours) Temp Pulse Pulse Pulse Resp BP BP 04/13/18 12:34 04/13/18 12:00 98.1 F 92 18 04/13/18 10:26 91 201/89 H 04/13/18 09:55 101 H 94 196/100 H 04/13/18 08:42 82 186/55 H 04/13/18 08:39 04/13/18 07:00 98.3 F 97 20 04/13/18 03:45 04/13/18 03:10 98.5 F 97 16 BP BP Pulse Ox 04/13/18 12:34 180/58 H 04/13/18 12:00 212/73 H 96 04/13/18 10:26 04/13/18 09:55 202/76 H 04/13/18 08:42 04/13/18 08:39 96 04/13/18 07:00 186/55 H 96 04/13/18 03:45 149/58 H 04/13/18 03:10 206/83 H 96 Weight Weight 188 lb 6.4 oz I&O: 04/12/18 04/13/18 04/14/18 06:59 06:59 06:59 Intake Total 500 Balance 500 Result Diagrams: 04/12/18 04:43 04/13/18 06:04 Phys Exam - Physical Examination HEENT: PERRLA + left visul field deficit Respiratory: no wheezing, no rales, no rhonchi, clear to auscultation bilateral Cardiovascular: RRR, no significant murmur, no rub Gastrointestinal: soft, non-tender, no distention, positive bowel sounds Musculoskeletal: no edema, pulses present + Left sided weakness Dx/Plan (1) Acute CVA (cerebrovascular accident) Code(s): I63.9 - CEREBRAL INFARCTION, UNSPECIFIED Status: Acute (2) Parkinsons disease Code(s): G20 - PARKINSON'S DISEASE Status: Chronic (3) Anxiety Code(s): F41.9 - ANXIETY DISORDER, UNSPECIFIED Status: Chronic (4) Hypertension Code(s): I10 - ESSENTIAL (PRIMARY) HYPERTENSION Status: Acute (5) Chronic kidney disease, stage 3 Code(s): N18.3 - CHRONIC KIDNEY DISEASE, STAGE 3 (MODERATE) Status: Acute - Plan * Acute CVA- She was unable to tolerate doing an MRI- will check a CT scan of the brain * She was able to undergo the CTA of the neck * HTN- blood pressure continues to be elevated- so will add Clonidine * Parkinson's disease- stable * CKD- stable * Will re-check creatinine in the AM.
[2018-04-13] MEDS ORDERED: cloNIDine 0.1 MG TAB PO SCH (15:00)
[2018-04-13] MEDS: diphenhydrAMINE 25 MG CAP PO PRN (16:13)
[2018-04-13] MEDS ORDERED: Labetalol HCl 100 MG/20 ML VIAL SLOW IVP PRN (17:16)
[2018-04-13] MEDS: diphenhydrAMINE 2% CREAM 28.4 GM TUBE TOP PRN (17:32)
[2018-04-13] MEDS: BENADRYL 25 MG PO SCH (21:41)
[2018-04-13] MEDS: Atorvastatin Calcium 40 MG TAB PO SCH (21:41)
[2018-04-13] MEDS: Donepezil HCl 5 MG TAB PO SCH (21:41)
[2018-04-14] MEDS: Lorazepam 2 MG/ML VIAL SLOW IVP PRN ×3 (05:57→18:38)
[2018-04-14] MEDS: Acetaminophen 500 MG TAB PO PRN (07:08)
[2018-04-14 07:33] LABS: Anion Gap 13 mmol/L (10-20); BUN (Urea Nitrogen) 20 mg/dL (9.8-20.1); Calc. Creatinine Clearance 58 mL/min (70-130); Calcium 9.5 mg/dL (7.8-10.44); Carbon Dioxide 24 mmol/L (23-31); Chloride 105 mmol/L (98-107); Estimated GFR-MDRD 60; Glucose 123 mg/dL (83-110); Potassium 3.5 mmol/L (3.5-5.1); Sodium 138 mmol/L (136-145)
[2018-04-14] MEDS: diphenhydrAMINE 2% CREAM 28.4 GM TUBE TOP PRN (08:25)
[2018-04-14] MEDS: Colchicine 0.6 MG TAB PO SCH ×3 (08:51→23:39)
[2018-04-14] MEDS: Allopurinol 100 MG TAB PO SCH (08:51)
[2018-04-14] MEDS: Carvedilol 25 MG TAB PO SCH ×2 (08:51→16:55)
[2018-04-14] MEDS: Calcitriol 0.25 MCG CAP PO SCH (08:51)
[2018-04-14] MEDS: Aspirin 325 mg Enteric Coated Tablet PO SCH (08:51)
[2018-04-14] MEDS: Amlodipine 5 MG TAB PO SCH (08:51)
[2018-04-14] MEDS: FLUoxetine HCl 20 MG CAP PO SCH (08:52)
[2018-04-14] MEDS: Multivit, Therapeutic 1 TAB PO SCH (08:52)
[2018-04-14] MEDS: diphenhydrAMINE 25 MG CAP PO PRN (08:53)
[2018-04-14] MEDS: Carbidopa/Levodopa 25-100 mg Tablet PO SCH ×3 (09:31→16:32)
[2018-04-14] MEDS ORDERED: Donepezil HCl 5 MG TAB PO SCH (10:15)
--- NOTE | 2018-04-14 11:37 | PDOC.PN ---
- Subjective Encounter Start Date: 04/14/18 Encounter Start Time: 11:00 Ms. Mooney was seen today in follow-up of acute CVA. She is much calmer today. She says she was able to rest better last night. - Objective Resuscitation Status - Order Detail: 04/11/18 17:43 Resuscitation Status Routine Resuscitation Status: FULL: Full Resuscitation Discussed with: family MAR Reviewed: Yes Vital Signs & Weight: Vital Signs (12 hours) Temp Pulse Resp BP BP Pulse Ox 04/14/18 08:51 95 163/68 H 04/14/18 07:10 96 04/14/18 04:00 98.7 F 95 16 163/68 H 94 L 04/14/18 00:00 99.3 F 102 H 16 147/103 H 93 L Weight Weight 188 lb 6.4 oz I&O: 04/13/18 04/14/18 04/15/18 06:59 06:59 06:59 Intake Total 500 1605 Balance 500 1605 Result Diagrams: 04/12/18 04:43 04/14/18 06:05 Phys Exam - Physical Examination HEENT: PERRLA + left visual field deficit Respiratory: no wheezing, no rales, no rhonchi, clear to auscultation bilateral Cardiovascular: RRR, no significant murmur, no rub + occasional PVC's Gastrointestinal: soft, non-tender, no distention, positive bowel sounds Musculoskeletal: no edema, pulses present Neurological: moves all 4 limbs there is a lack of coordination in left pper extremity muscle strenth is 5/5 but weaker than the right Dx/Plan (1) Acute CVA (cerebrovascular accident) Code(s): I63.9 - CEREBRAL INFARCTION, UNSPECIFIED Status: Acute (2) Parkinsons disease Code(s): G20 - PARKINSON'S DISEASE Status: Chronic (3) Anxiety Code(s): F41.9 - ANXIETY DISORDER, UNSPECIFIED Status: Chronic (4) Hypertension Code(s): I10 - ESSENTIAL (PRIMARY) HYPERTENSION Status: Acute (5) Chronic kidney disease, stage 3 Code(s): N18.3 - CHRONIC KIDNEY DISEASE, STAGE 3 (MODERATE) Status: Acute - Plan * Acute CVA with Left sided weakness and Left visual field deficit- continue aspirin and Statin * Plan is for CT scan of the brain- hopefully will document the stroke * HTN- blood pressure still elevated - will add Clonidine, and see the effect * Parkinson's disease- stable * CKD- renal function is stable after the CTA * Begin discharge planning.. Rehab.
--- NOTE | 2018-04-14 13:56 | CT ---
CT BRAIN: DATE: 04/14/2018. PROVIDED CLINICAL HISTORY: Recent right-sided weakness. FINDINGS: Comparison is made with the examination dated 04/11/2018. The ventricular system appears normal in si ze and morphology. There is a stable focus of hyperdensity involving the right frontal white matter compatible with previously described cavernoma. Conspicuous hypodensity involving he right parietal region is redemonstrated. No evidence for intracranial hemorrhage or mass effect. The extracranial soft tissues and osseous structures appear unremarkable. IMPRESSION: Stable diminished attenuation involving the right parietal white matter, incompletely characterized o n the basis of this study. This could reflect white matter ischemic change, though vasogenic edema i s also possible. POS: [facility]
[2018-04-14] MEDS: cloNIDine 0.1 MG TAB PO SCH ×3 (15:18→23:38)
[2018-04-14] MEDS ORDERED: Hydrochlorothiazide 25 MG TAB PO SCH (18:00)
--- NOTE | 2018-04-14 21:17 | CON ---
DATE OF CONSULTATION: CONSULTING PHYSICIAN: Alfonso Sethi MD REQUESTING PHYSICIAN: Franki Leyva M.D. REASON FOR CONSULTATION: Need to expose this patient to contrast dye. IMPRESSION: 1. Chronic kidney disease stage 3, relatively stable, followed by Dr. Montesinos. 2. Cerebrovascular accident, undergoing workup. 3. If contrast exposure becomes absolutely needed, would recommend IV fluid prophylaxis prior to exposure to the contrast and IV fluid afterwards. Otherwise, there is no absolute contraindication to patient being able to undergo contrast study. We will recommend the lowest possible dose and the above mentioned rehydration. HISTORY OF PRESENT ILLNESS: This is a 77-year-old female patient who was brought to me because of left eye loss of vision and left-sided weakness. The patient does have chronic kidney disease stage 3 and is currently workup, which may involve exposure to contrast as well as CT angiogram PAST MEDICAL HISTORY: Significant for; 1. Hypertension. 2. Reflux disease. 3. Osteoarthritis. 4. Insomnia. 5. Spondylosis. 6. Parkinson's disease. 7. Heart failure. 8. Dementia. 9. Rheumatoid arthritis. MEDICATIONS: Medications were reviewed and as documented on [facility]. SOCIAL HISTORY: No alcohol. No tobacco. No illicit drug use. REVIEW OF SYSTEMS: As documented in the body of the history. Highly limited given the mental status of this patient. PHYSICAL EXAMINATION: GENERAL: The patient was found to be restless, thrashing her arm VITAL SIGNS: Afebrile, temperature 98.9, pulse 88, respiratory rate of 18, O2 saturations of 94% with a blood pressure of 143/78 to 187/66. HEENT: Unremarkable except left-sided facial droop. CARDIOVASCULAR SYSTEM: First and second heart sounds were heard. RESPIRATORY SYSTEM: Clear to auscultation. DIGESTIVE SYSTEM: Reviewed a benign abdomen. Positive bowel sounds. EXTREMITIES: No peripheral edema. SKIN: No new bruise or rash. LYMPHATICS: No peripheral lymphadenopathy. SUMMARY: 77-year-old female patient who came with symptoms of CVA, currently undergoing workup. Thank you for this consultation. We will follow with you. Job ID: [id number]
--- NOTE | 2018-04-14 21:26 | PRG ---
DATE OF SERVICE: 04/13/2018 SUBJECTIVE: The patient noted with the following. OBJECTIVE: VITAL SIGNS: Afebrile, temperature 99.4, pulse 109, blood pressure , respiratory rate of 20, O2 saturation of 96% with HEENT: Unremarkable. CARDIOVASCULAR SYSTEM: First and second heart sounds were heard. RESPIRATORY SYSTEM: Clear to auscultation. DIGESTIVE SYSTEM: Reviewed benign abdomen. EXTREMITIES: No peripheral edema. SKIN: No new bruise or rash. NEUROLOGIC: Revealed the patient is agitated clearly agitated. LABORATORY INVESTIGATION: Creatinine of 1.2. IMPRESSION: 1. Chronic kidney disease stage 3, more or less at baseline. 2. Cerebrovascular accident. 3. Altered mental status may be related to cerebrovascular accident. 4. Hypertensive urgency. PLAN: 1. Adjust the patient's antihypertensive medications to optimize hemodynamics. 2. Monitor the renal function, status post recent exposure to contrast CT angio. 3. Further management will be dependent on the clinical course. Job ID: [id number]
[2018-04-14] MEDS: Atorvastatin Calcium 40 MG TAB PO SCH ×2 (22:09→23:38)
[2018-04-14] MEDS: BENADRYL 25 MG PO SCH ×2 (22:13→23:40)
[2018-04-14] MEDS: Hydrochlorothiazide 25 MG TAB PO SCH ×2 (22:13→23:39)
[2018-04-15] MEDS: Lorazepam 2 MG/ML VIAL SLOW IVP PRN ×2 (00:41→22:06)
--- NOTE | 2018-04-15 07:01 | PRG ---
DATE OF SERVICE: 04/14/2018 SUBJECTIVE: The patient was seen and examined. OBJECTIVE: VITAL SIGNS: Noted with the following vital signs; afebrile, temperature 98.6, pulse 78, respiratory rate of 19, O2 saturation of 98%, and blood pressure of 122/65. HEENT: Unremarkable. Moist oral mucosa. Neck was supple. No conjunctival injection or icterus. CARDIOVASCULAR: First and second heart sounds were heard. RESPIRATORY: Clear to auscultation. DIGESTIVE: Revealed a benign abdomen with positive bowel sounds. EXTREMITIES: No peripheral edema. SKIN: No new gross rash. LYMPHATICS: No peripheral lymphadenopathy. LABORATORY DATA: Significant for creatinine down to 1.07. IMPRESSION: 1. Lanst-un-oeoxukd kidney disease, which seems to have resolved back to the patient's baseline kidney function. 2. Cerebrovascular accident. PLAN: 1. We will continue current renal supportive measures. 2. Discontinue all IV fluids. 3. Further management will be dependent on the clinical course. Job ID: [id number]
[2018-04-15] MEDS ORDERED: Ergocalciferol 1.25 MG(50,000 UNITS) CAP PO SCH (09:00)
[2018-04-15] MEDS: Amlodipine 5 MG TAB PO SCH (09:36)
[2018-04-15] MEDS: Colchicine 0.6 MG TAB PO SCH ×2 (09:36→20:36)
[2018-04-15] MEDS: cloNIDine 0.1 MG TAB PO SCH ×3 (09:36→20:36)
[2018-04-15] MEDS: Calcitriol 0.25 MCG CAP PO SCH (09:37)
[2018-04-15] MEDS: Carbidopa/Levodopa 25-100 mg Tablet PO SCH ×3 (09:37→18:01)
[2018-04-15] MEDS: FLUoxetine HCl 20 MG CAP PO SCH (09:37)
[2018-04-15] MEDS: Donepezil HCl 5 MG TAB PO SCH (09:37)
[2018-04-15] MEDS: Multivit, Therapeutic 1 TAB PO SCH (09:38)
[2018-04-15] MEDS: Carvedilol 25 MG TAB PO SCH ×2 (09:38→18:00)
[2018-04-15] MEDS: Allopurinol 100 MG TAB PO SCH (09:38)
[2018-04-15] MEDS: Aspirin 325 mg Enteric Coated Tablet PO SCH (09:38)
[2018-04-15] MEDS: Acetaminophen 500 MG TAB PO PRN ×2 (09:47→15:49)
--- NOTE | 2018-04-15 10:56 | PDOC.PN ---
- Subjective Encounter Start Date: 04/15/18 Encounter Start Time: 09:15 Ms. Mooney was seen today in follow-up of Acute CVA with Left sided weakness, and Left visual field deficit. She rested ok last night, and her main complaint is that she would like to e re-positioned in the bed. - Objective Resuscitation Status - Order Detail: 04/11/18 17:43 Resuscitation Status Routine Resuscitation Status: FULL: Full Resuscitation Discussed with: family MAR Reviewed: Yes Vital Signs & Weight: Vital Signs (12 hours) Temp Pulse Pulse Resp BP BP BP 04/15/18 10:20 69 124/57 L 04/15/18 09:36 98 160/66 H 04/15/18 07:58 98.7 F 98 16 160/66 H 04/15/18 04:00 98.5 F 78 19 145/63 H 04/15/18 00:00 99.0 F 93 19 169/55 H 04/14/18 23:38 169/55 H Pulse Ox 04/15/18 10:20 04/15/18 09:36 04/15/18 07:58 94 L 04/15/18 04:00 93 L 04/15/18 00:00 94 L 04/14/18 23:38 Weight Weight 188 lb 6.4 oz I&O: 04/14/18 04/15/18 04/16/18 06:59 06:59 06:59 Intake Total 1905 580 Balance 1905 580 Result Diagrams: 04/12/18 04:43 04/14/18 06:05 Phys Exam - Physical Examination HEENT: PERRLA Respiratory: no wheezing, no rales, no rhonchi, clear to auscultation bilateral Cardiovascular: RRR, no significant murmur, no rub Gastrointestinal: soft, non-tender, no distention, positive bowel sounds Musculoskeletal: no edema, pulses present Left upper extremity weakness, and discoordination Dx/Plan (1) Acute CVA (cerebrovascular accident) Code(s): I63.9 - CEREBRAL INFARCTION, UNSPECIFIED Status: Acute (2) Parkinsons disease Code(s): G20 - PARKINSON'S DISEASE Status: Chronic (3) Anxiety Code(s): F41.9 - ANXIETY DISORDER, UNSPECIFIED Status: Chronic (4) Hypertension Code(s): I10 - ESSENTIAL (PRIMARY) HYPERTENSION Status: Acute (5) Chronic kidney disease, stage 3 Code(s): N18.3 - CHRONIC KIDNEY DISEASE, STAGE 3 (MODERATE) Status: Acute - Plan * Acute CVA- in the right parietal region- CT findings are consistent with this * HTN- blood pressure is trending down * Continue aspirin and Statin therapy. * Parkinson's Disease- stable * CKD- stable * Await discharge placement
[2018-04-15] MEDS ORDERED: Ondansetron ODT 4 MG TAB PO PRN (19:10)
[2018-04-15] MEDS: Atorvastatin Calcium 40 MG TAB PO SCH (20:36)
[2018-04-15] MEDS: BENADRYL 25 MG PO SCH (20:37)
--- NOTE | 2018-04-15 21:49 | PRG ---
DATE OF SERVICE: 04/15/2018 SUBJECTIVE: The patient is seen and examined. Noted with the following. OBJECTIVE: VITAL SIGNS: Afebrile, temperature 98.4; pulse 74; blood pressure 130/52, respiratory rate of 19, O2 sat of 98%. HEENT: Unremarkable. CARDIOVASCULAR: First and second heart sounds were heard. RESPIRATORY SYSTEM: Clear to auscultation. DIGESTIVE SYSTEM: Revealed a benign abdomen. EXTREMITIES: No peripheral edema. SKIN EXAMINATION: No new gross rash. LYMPHATICS: No peripheral lymphadenopathy. LABORATORY INVESTIGATION: Noted creatinine down to 1.07 from yesterday. IMPRESSION: Acute kidney injury, which seems to have improved. PLAN: 1. We will continue current renal supportive measures. 2. We will be following . 3. Further management to be dependent on the clinical course. Job ID: [id number]
[2018-04-16] MEDS: diphenhydrAMINE 25 MG CAP PO PRN (06:34)
[2018-04-16] MEDS: Acetaminophen 500 MG TAB PO PRN ×2 (06:34→12:49)
[2018-04-16] MEDS: Allopurinol 100 MG TAB PO SCH (10:22)
[2018-04-16] MEDS: Donepezil HCl 5 MG TAB PO SCH (10:22)
[2018-04-16] MEDS: Colchicine 0.6 MG TAB PO SCH (10:22)
[2018-04-16] MEDS: Multivit, Therapeutic 1 TAB PO SCH (10:22)
[2018-04-16] MEDS: FLUoxetine HCl 20 MG CAP PO SCH (10:23)
[2018-04-16] MEDS: Carvedilol 25 MG TAB PO SCH (10:23)
[2018-04-16] MEDS: Aspirin 325 mg Enteric Coated Tablet PO SCH (10:23)
[2018-04-16] MEDS: Amlodipine 5 MG TAB PO SCH (10:23)
[2018-04-16] MEDS: cloNIDine 0.1 MG TAB PO SCH ×2 (10:23→14:18)
[2018-04-16] MEDS: Calcitriol 0.25 MCG CAP PO SCH (10:23)
[2018-04-16] MEDS: Carbidopa/Levodopa 25-100 mg Tablet PO SCH ×2 (10:23→13:54)
[2018-04-16 11:49] VITALS: BP 147/60; TEMP 98.6
--- NOTE | 2018-04-16 18:59 | DIS ---
DATE OF ADMISSION: 04/12/2018 DATE OF DISCHARGE: 04/16/2018 DISCHARGE DISPOSITION: To inpatient rehabilitation. CODE STATUS: Do not resuscitate. The patient was seen and examined on the day of discharge. Denies any new complaints. No new focal deficit. DISCHARGE MEDICATIONS: 1. Aspirin 325 mg daily. 2. Carvedilol 25 mg twice a day. 3. Clonidine 0.1 mg three times a day. 4. Multivitamin one tablet daily. 5. Amlodipine 5 mg daily. 6. Ergocalciferol 1.25 mg every 3 days. 7. Zanaflex 4 mg at bedtime as needed. 8. Gabapentin 300 mg b.i.d. 9. Prozac 40 mg daily. 10. Aricept 10 mg b.i.d. 11. Benadryl 25 mg daily. 12. Colchicine as needed. 13. Vitamin D3 of 2000 units daily. 14. Carbidopa and levodopa 2 tablets three times a day. 15. Calcitriol 0.25 mcg daily. 16. Lipitor 40 mg at bedtime. 17. Allopurinol 100 mg daily. INPATIENT HEALTH CARE LAW SPECIALIST: 1. Neurology, Dr. Austin. 2. Nephrology, Dr. Sethi. BRIEF HOSPITAL COURSE: The patient is a 77-year-old female with hypertension, Parkinson's disease, dementia, and GERD, presented to the hospital with generalized weakness and confusion. Please refer to the history and physical dated April 11, 2018, for further details. The patient was admitted to the hospital with a diagnosis of acute CVA with left visual field deficit and left hemineglect. Symptoms were suspicious for posterior parietal infarct on the right. She was started on aspirin and statins. Echocardiogram showed left ventricular ejection fraction of 60% to 65% with diastolic dysfunction. CT angiogram of the neck showed approximately 30% to 40% proximal left internal carotid artery stenosis. Repeat CT scan of the brain on April 14 showed suspected stroke involving the right parietal white matter. She also had mild acute kidney injury with maximum creatinine of 1.31 that has resolved. Creatinine on the day of discharge is 1.07. A fasting lipid profile showed LDL of 76, cholesterol 168, triglycerides 65, TSH 1.8. Troponins were normal. Plan of care was discussed with the patient and the family at the bedside, they stated understanding. FINAL DIAGNOSES: 1. Acute right parietal cerebrovascular accident causing left-sided hemineglect as well as left visual field deficit. 2. Encephalopathy secondary to acute right parietal cerebrovascular accident causing left-sided hemineglect as well as left visual field deficit, resolved. 3. Acute kidney injury on chronic kidney disease stage 2. 4. Left internal carotid artery stenosis, 30% to 40%. 5. Obesity with a body mass index of 34.5. 6. Hypertension. 7. Gastroesophageal reflux disease. 8. Mild hyponatremia. 9. Parkinson's disease. 10. Anxiety. 11. Chronic anemia. TIME SPENT: Total time coordinating the discharge of this patient was 35 minutes. Job ID: [id number]
== END 2018-04-16 14:48 | DRG 64 ==
LOC: ERS 14:21 → 2SE 17:10 → OBSVTOIN 04-12 17:58
PROVIDERS: ADMIT Internal Medicine; ATTEND Internal Medicine
DX: I63.9 Cerebral infarction, unspecified (principal); G93.41 Metabolic encephalopathy; G81.94 Hemiplegia, unspecified affecting left nondominant side; N17.9 Acute kidney failure, unspecified; E87.1 Hypo-osmolality and hyponatremia; H53.9 Unspecified visual disturbance; I12.9 Hypertensive chronic kidney disease with stage 1 through stage 4 chronic kidney disease, or unspecified chronic kidney disease; I65.22 Occlusion and stenosis of left carotid artery; E66.9 Obesity, unspecified; Z68.34 Body mass index [BMI] 34.0-34.9, adult; K21.9 Gastro-esophageal reflux disease without esophagitis; G20 Parkinson's disease; F41.9 Anxiety disorder, unspecified; D53.9 Nutritional anemia, unspecified; I11.0 Hypertensive heart disease with heart failure; I50.9 Heart failure, unspecified; M54.5 Low back pain; M10.9 Gout, unspecified; F03.90 Unspecified dementia, unspecified severity, without behavioral disturbance, psychotic disturbance, mood disturbance, and anxiety; M06.9 Rheumatoid arthritis, unspecified; M19.90 Unspecified osteoarthritis, unspecified site; M48.061 Spinal stenosis, lumbar region without neurogenic claudication; F32.9 Major depressive disorder, single episode, unspecified; Z79.82 Long term (current) use of aspirin; Z88.8 Allergy status to other drugs, medicaments and biological substances; N18.3 Chronic kidney disease, stage 3 (moderate); E78.5 Hyperlipidemia, unspecified; I16.0 Hypertensive urgency
CPT/HCPCS: 36415; 36416; 70450; 70498; 70553; 80048; 80053; 80061; 81003; 81015; 82550; 82553; 84443; 84484; 85025; 85610; 85730; 87040; 87086; 93005; 93306; 93880; 94760; 96374; A9579; G8978-GP-CM; G8979-GP-CK; G8987-GO-CK; G8988-GO-CJ; G8996-GN-CI; G8997-GN-CH; J0360; J1630; J2060

== ENCOUNTER 2018-04-23 09:41 | Emergency (ER) | payer MEDICAID, MEDICARE ==
[2018-04-23 10:19] LABS: #Basophils 0.1 thou/uL (0.0-0.2); #Eosinphils 0.1 thou/uL (0.0-0.7); #Lymphocytes 2.4 thou/uL (1.20-3.40); #Monocytes 0.6 thou/uL (0.11-0.59); #Neutrophils 4.4 thou/uL (1.40-6.50); %Basophils 0.9 % (0.0-1.0); %Eosinophils 1.4 % (0.0-10.0); %Lymphocytes 31.8 % (21.0-51.0); %Monocytes 7.7 % (0.0-10.0); %Neutrophils 58.2 % (42.0-75.0); Hemoglobin 10.4 g/dL (12.0-16.0); Mean Corpuscular HGB CONC 34.8 g/dL (32.0-36.0); Mean Corpuscular Hemoglobin 30.9 pg (27.0-31.0); Mean Corpuscular Volume 88.7 fL (78.0-98.0); Platelet Count 166 thou/uL (130-400); RBC Distribution Width 13.7 % (11.5-14.5); Red Blood Cell (RBC) Count 3.36 mill/uL (4.20-5.40); White Blood Cell (WBC) Count 7.5 thou/uL (4.8-10.8)
[2018-04-23 10:24] LABS: INR-International Normal Ratio 1.2; PTT 29.6 SEC (22.9-36.1); Prothrombin Time 15.4 SEC (12.0-14.7)
--- NOTE | 2018-04-23 10:28 | CT ---
BRAIN CT WITHOUT IV CONTRAST: History: 77-year-old female with history of altered mental status. Code 2 stroke protocol. Comparison: 04-14-18 FINDINGS: There is some minimal motion artifact to the skull base region. There is a small stable focal area of increased density on the right side adjacent to the falx as well as a small focal increased density adjacent to the right calvarium, probably evidence for cavernoma. Stable low attenuation change in th e right parietal centrum semiovale and subcortical regions. No mass effect or midline shift. No evide nce for an acute hemorrhage. The low attenuation change in the right posterior parietal region may be somewhat more well defined, evidence for evolving infarct. 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 Some low attenuation changes in the right parietal white matter and subcortica l regions, slightly more well defined than on the prior study, probably related to evolving infarct c hange. No evidence for acute hemorrhage. No acute mass. No evidence for acute edema. Findings were discussed with Dr. Perez by phone at 10:00 a.m. Code CR POS: [facility]
[2018-04-23 10:49] LABS: ALT (SGPT) Less than 7 U/L (8-55); AST (SGOT) 16 U/L (5-34); Albumin 3.7 g/dL (3.4-4.8); Alkaline Phosphatase 86 U/L (40-150); Anion Gap 13 mmol/L (10-20); BUN (Urea Nitrogen) 29 mg/dL (9.8-20.1); Calc. Creatinine Clearance 0 mL/min (70-130); Calcium 9.6 mg/dL (7.8-10.44); Carbon Dioxide 27 mmol/L (23-31); Chloride 108 mmol/L (98-107); Estimated GFR-MDRD 53; Globulin 3.7 g/dL (2.4-3.5); Glucose 105 mg/dL (83-110); Potassium 4.6 mmol/L (3.5-5.1); Protein, Total 7.4 g/dL (6.0-8.3); Sodium 143 mmol/L (136-145)
[2018-04-23 11:42] LABS: Bilirubin, Total 0.3 mg/dL (0.2-1.2)
[2018-04-23 12:23] LABS: Bilirubin Negative (Negative); Blood, Urine Negative (Negative); Glucose, Urine (Dipstick) Negative (Negative); Leukocyte Negative (Negative); Nitrite Negative (Negative); Protein, Urine (Dipstick) Negative (Neg-Trace); Urobilinogen 0.2 mg/dL (0.2-1.0); pH, Urine 5.5 (5.0-9.0)
[2018-04-23 12:24] LABS: Clarity Clear (Clear)
[2018-04-23] MEDS ORDERED: cloNIDine 0.1 MG TAB ONE (13:57)
--- NOTE | 2018-04-24 14:14 | EKG ---
Test Reason : CVA R/O Blood Pressure : / mmHG Vent. Rate : 054 BPM Atrial Rate : 054 BPM P-R Int : 170 ms QRS Dur : 094 ms QT Int : 482 ms P-R-T Axes : 076 039 057 degrees QTc Int : 457 ms Sinus bradycardia Possible Left atrial enlargement Nonspecific ST and T wave abnormality Abnormal ECG Confirmed by JOHNATHAN DU DO ([id number]), desk editor GORDON EPPS ([id number]) on 04/24/2018 2:14:12 PM Referred By: Confirmed By:JOHNATHAN DU DO
== END 2018-04-23 14:00 ==
LOC: ERS 09:41
DX: R41.82 Altered mental status, unspecified (principal); Z86.73 Personal history of transient ischemic attack (TIA), and cerebral infarction without residual deficits; K21.9 Gastro-esophageal reflux disease without esophagitis; I11.0 Hypertensive heart disease with heart failure; I50.9 Heart failure, unspecified; M10.9 Gout, unspecified; G20 Parkinson's disease; G47.00 Insomnia, unspecified; F41.9 Anxiety disorder, unspecified; F32.9 Major depressive disorder, single episode, unspecified; Z79.899 Other long term (current) drug therapy
CPT/HCPCS: 36415; 36416; 51701; 70450; 80053; 81003; 84484; 85025; 85610; 85730; 93005; A4353

== ENCOUNTER 2018-06-12 10:41 | Emergency (ER) | payer MEDICARE, MEDICAID ==
--- NOTE | 2018-06-12 13:11 | RAD ---
CHEST ONE VIEW: HISTORY: Cough. COMPARISON: 12/30/2014 FINDINGS: The cardiac silhouette is magnified by projection. The pulmonary vasculature is slightly engorged. The mediastinum is midline. No confluent air space consolidation or evidence of pneumothorax. Cardi ac monitor leads overly the chest. IMPRESSION: Pulmonary vascular congestion. POS: [facility]
--- NOTE | 2018-06-12 13:31 | CT ---
CT HEAD NONCONTRAST: Date: 06/12/18 HISTORY: Headache. COMPARISON: 04/23/18 and 04/14/18. FINDINGS: The small hyperdense lesions at the medial aspect of the posterior right frontal lobe and along the r ight temporoparietal calvarial inner table are similar in appearance to the prior study. Mild diffuse cortical atrophy and chronic ischemic small vessel disease. There is no mass effect or shift of midl ine structures. Visualized paranasal sinuses remain well aerated. IMPRESSION: Chronic-type findings are stable. No acute intracranial abnormalities are demonstrated. POS: [facility]
[2018-06-12] MEDS ORDERED: Acetaminophen 500 MG TAB ONE (13:49)
[2018-06-12 13:53] LABS: Bilirubin Negative (Negative); Blood, Urine Negative (Negative); Clarity CLEAR (Clear); Glucose, Urine (Dipstick) Negative (Negative); Leukocyte Small (Negative); Nitrite Negative (Negative); Protein, Urine (Dipstick) Trace mg/dL (Neg-Trace); pH, Urine 6.5 (5.0-9.0)
[2018-06-12 13:56] LABS: Bacteria/HPF Rare-Few HPF (None Seen); Hyaline Casts/LPF 4-6 HYALINE CAST LPF (0-3 Hyaline); Pathc Cast-AUWi Flag 1.16 (0-2.49); RBC/HPF 0-3 HPF (0-3)
[2018-06-12 14:01] LABS: #Basophils 0.1 thou/uL (0.0-0.2); #Eosinphils 0.1 thou/uL (0.0-0.7); #Lymphocytes 2.1 thou/uL (1.20-3.40); #Monocytes 0.5 thou/uL (0.11-0.59); #Neutrophils 4.2 thou/uL (1.40-6.50); %Basophils 1.3 % (0.0-1.0); %Eosinophils 0.9 % (0.0-10.0); %Lymphocytes 30.3 % (21.0-51.0); %Neutrophils 60.5 % (42.0-75.0); Hemoglobin 9.5 g/dL (12.0-16.0); Mean Corpuscular HGB CONC 34.6 g/dL (32.0-36.0); Mean Corpuscular Hemoglobin 31.1 pg (27.0-31.0); Platelet Count 177 thou/uL (130-400); RBC Distribution Width 13.4 % (11.5-14.5); Red Blood Cell (RBC) Count 3.06 mill/uL (4.20-5.40); White Blood Cell (WBC) Count 6.9 thou/uL (4.8-10.8)
[2018-06-12 14:39] LABS: ALT (SGPT) Less than 7 U/L (8-55); AST (SGOT) 24 U/L (5-34); Albumin 3.6 g/dL (3.4-4.8); Alkaline Phosphatase 82 U/L (40-150); Anion Gap 13 mmol/L (10-20); BUN (Urea Nitrogen) 22 mg/dL (9.8-20.1); Bilirubin, Total 0.3 mg/dL (0.2-1.2); Calc. Creatinine Clearance 0 mL/min (70-130); Calcium 9.6 mg/dL (7.8-10.44); Carbon Dioxide 25 mmol/L (23-31); Chloride 104 mmol/L (98-107); Estimated GFR-MDRD 35; Globulin 3.8 g/dL (2.4-3.5); Glucose 96 mg/dL (83-110); Potassium 4.2 mmol/L (3.5-5.1); Protein, Total 7.4 g/dL (6.0-8.3); Sodium 138 mmol/L (136-145)
== END 2018-06-12 15:08 | disposition home or self-care (01) ==
LOC: ERS 10:41
DX: G43.909 Migraine, unspecified, not intractable, without status migrainosus (principal); R09.89 Other specified symptoms and signs involving the circulatory and respiratory systems; N19 Unspecified kidney failure; F41.9 Anxiety disorder, unspecified; M10.9 Gout, unspecified; M19.90 Unspecified osteoarthritis, unspecified site; K21.9 Gastro-esophageal reflux disease without esophagitis; F32.9 Major depressive disorder, single episode, unspecified; I11.0 Hypertensive heart disease with heart failure; I50.9 Heart failure, unspecified; G20 Parkinson's disease; G47.00 Insomnia, unspecified; Z86.73 Personal history of transient ischemic attack (TIA), and cerebral infarction without residual deficits; Z79.899 Other long term (current) drug therapy
CPT/HCPCS: 70450; 71045; 80053; 81003; 81015; 85025; 85652

== ENCOUNTER 2019-01-29 11:05 | Outpatient (CLI) | payer MEDICARE, MEDICAID ==
--- NOTE | 2019-01-29 13:02 | MMO ---
Bilateral MAMMO Bilat Screen [facility]. CLINICAL HISTORY: Patient is 78 years old and is seen for screening. The patient has the following family history of breast cancer: niece, at age 30. The patient has no personal history of cancer. VIEWS: The views performed were: bilateral craniocaudal with tomosynthesis and bilateral mediolateral oblique with tomosynthesis. FILMS COMPARED: The present examination has been compared to prior imaging studies performed at [facility] on 07/26/2006, 09/09/2007, 10/06/2008 and 09/05/2012. This study has been interpreted with the assistance of computer-aided detection. MAMMOGRAM FINDINGS: There are scattered fibroglandular densities. There are no suspicious masses, suspicious calcifications, or new areas of architectural distortion. IMPRESSION: THERE IS NO MAMMOGRAPHIC EVIDENCE OF MALIGNANCY. A ROUTINE FOLLOW-UP MAMMOGRAM IN 1 YEAR IS RECOMMENDED. THE RESULTS OF THIS EXAM WERE SENT TO THE PATIENT. ACR BI-RADS Category 1 - Negative MAMMOGRAPHY NOTE: 1. A negative mammogram report should not delay a biopsy if a dominant of clinically suspicious mass is present. 2. Approximately 10% to 15% of breast cancers are not detected by mammography. 3. Adenosis and dense breasts may obscure an underlying neoplasm. Reported by: MAYKEL CHRISTIANSON MD Electonically Signed: [id number]
== END 2019-01-29 11:06 | disposition home or self-care (01) ==
LOC: BICMAMMO 11:05
PROVIDERS: ATTEND Family Medicine
DX: Z12.31 Encounter for screening mammogram for malignant neoplasm of breast (principal); Z80.3 Family history of malignant neoplasm of breast
CPT/HCPCS: 77063; 77067

== ENCOUNTER 2019-11-13 12:22 | Emergency (ER) | payer MEDICARE, MEDICAID ==
--- NOTE | 2019-11-13 13:14 | CT ---
Head CT without contrast 11/13/2019: COMPARISON: 06/12/2018 HISTORY: Fall one week ago, lethargy TECHNIQUE: Axial CT imaging at 5 mm intervals from vertex through skull base without contrast FINDINGS: Imaged paranasal sinuses and mastoid air cells are well-aerated. No displaced calvarial fra cture. There is a faint hyperdense focus near the vertex involving the medial aspect of the right frontal lo be measuring in the 4 mm range, similar when compared to prior imaging, likely on the basis of a cavernoma. Encephalomalacia on the basis of prior insult is noted in the superior posterior right fro ntoparietal region, as seen on prior brain MRI performed 04/14/2019. No intracranial hemorrhage, midline shift, or mass effect. IMPRESSION: Chronic findings as detailed above. No intracranial hemorrhage.
--- NOTE | 2019-11-13 13:20 | RAD ---
Portable frontal chest radiograph: 11/13/2019 COMPARISON: 06/12/2018 HISTORY: Weakness, recent fall FINDINGS: Heart and mediastinal contours appear within normal limits. IMPRESSION: No acute findings. Cardiac silhouette is prominent. There is mid thoracic spine dextrosco liosis. Stable mild increased linear interstitial density. Elevation of the humeral head suggests bilateral rotator cuff pathology, left greater than right. No focal consolidation or alveolar edema. IMPRESSION: Stable appearance of the chest as detailed above.
[2019-11-13 15:02] LABS: Bilirubin 1+ (Negative); Blood, Urine Negative (Negative); Clarity Clear (Clear); Glucose, Urine (Dipstick) Normal (Negative); Ketone, Urine Negative (Negative); Leukocyte Negative Leu/uL (Negative); Nitrite Negative (Negative); Protein, Urine (Dipstick) 20 mg/dL (Neg-Trace); Specific Gravity, Urine 1.035 (1.002-1.036); Urobilinogen Normal mg/dL (Less than 2)
[2019-11-13 15:08] LABS: #Basophils 0.1 thou/uL (0.0-0.2); #Lymphocytes 2.1 thou/uL (1.20-3.40); #Monocytes 0.5 thou/uL (0.11-0.59); %Basophils 2.1 % (0.0-1.0); %Eosinophils 0.4 % (0.0-10.0); %Lymphocytes 36.6 % (21.0-51.0); %Monocytes 9.4 % (0.0-10.0); %Neutrophils 51.5 % (42.0-75.0); Hemoglobin 11.7 g/dL (12.0-16.0); Mean Corpuscular HGB CONC 35.4 g/dL (32.0-36.0); Mean Corpuscular Hemoglobin 32.9 pg (27.0-31.0); Mean Platelet Volume 9.5 fL (7.4-10.4); Platelet Count 156 thou/uL (130-400); RBC Distribution Width 12.8 % (11.5-14.5); Red Blood Cell (RBC) Count 3.56 mill/uL (4.20-5.40); White Blood Cell (WBC) Count 5.8 thou/uL (4.8-10.8)
[2019-11-13 15:28] LABS: ALT (SGPT) Less than 7 U/L (8-55); AST (SGOT) 10 U/L (5-34); Albumin 3.7 g/dL (3.4-4.8); Alkaline Phosphatase 79 U/L (40-110); Anion Gap 13 mmol/L (10-20); BUN (Urea Nitrogen) 12 mg/dL (9.8-20.1); Bilirubin, Total 0.3 mg/dL (0.2-1.2); CK (CPK) 42 U/L (29-168); Calc. Creatinine Clearance 0 mL/min (70-130); Calcium 9.7 mg/dL (7.8-10.44); Carbon Dioxide 23 mmol/L (23-31); Chloride 105 mmol/L (98-107); Estimated GFR-MDRD 40; Globulin 3.4 g/dL (2.4-3.5); Glucose 99 mg/dL (83-110); Potassium 3.7 mmol/L (3.5-5.1); Protein, Total 7.1 g/dL (6.0-8.3); Sodium 137 mmol/L (136-145)
== END 2019-11-13 16:10 | disposition home or self-care (01) ==
LOC: ERS 12:22
DX: R53.1 Weakness (principal); E78.5 Hyperlipidemia, unspecified; E78.00 Pure hypercholesterolemia, unspecified; I11.0 Hypertensive heart disease with heart failure; I50.9 Heart failure, unspecified; K21.9 Gastro-esophageal reflux disease without esophagitis; M10.9 Gout, unspecified; M19.90 Unspecified osteoarthritis, unspecified site; G20 Parkinson's disease; F03.90 Unspecified dementia, unspecified severity, without behavioral disturbance, psychotic disturbance, mood disturbance, and anxiety; F41.9 Anxiety disorder, unspecified; F32.9 Major depressive disorder, single episode, unspecified; Z86.73 Personal history of transient ischemic attack (TIA), and cerebral infarction without residual deficits; Z79.82 Long term (current) use of aspirin; Z79.899 Other long term (current) drug therapy
CPT/HCPCS: 51701; 70450; 71045; 80053; 81003; 82550; 84484; 85025; 87086; 93005

== ENCOUNTER 2020-01-27 15:37 | Inpatient (IN) | payer MEDICARE, MEDICAID, OTHER ==
--- NOTE | 2020-01-27 17:02 | RAD ---
RADIOGRAPH CHEST 1 VIEW: Date: 01/27/2020 Time: 1623 HOURS HISTORY: 79-year-old female with chest pain, acute and severe. COMPARISON: 11/13/2019. FINDINGS: Shallow inspiration. Small region of mildly increased attenuation at the right lower lung zone focall y, similar to prior study. Otherwise no consolidation or pulmonary edema. No pneumothorax. No interva l change. IMPRESSION: 1. Nonspecific ill-defined area of slightly increased attenuation at the right lower lung zone. 2. No interval change since 11/13/2019. JUANA [] POS: JIN
[2020-01-27 17:21] LABS: #Lymphocytes 1.9 thou/uL (1.20-3.40); #Monocytes 0.6 thou/uL (0.11-0.59); #Neutrophils 3.7 thou/uL (1.40-6.50); %Basophils 0.2 % (0.0-1.0); %Eosinophils 0.4 % (0.0-10.0); %Lymphocytes 30.8 % (21.0-51.0); %Monocytes 9.8 % (0.0-10.0); %Neutrophils 58.8 % (42.0-75.0); Hemoglobin 10.2 g/dL (12.0-16.0); Mean Corpuscular HGB CONC 34.7 g/dL (32.0-36.0); Mean Corpuscular Hemoglobin 32.3 pg (27.0-31.0); Mean Corpuscular Volume 93.1 fL (78.0-98.0); Mean Platelet Volume 10.9 fL (7.4-10.4); Platelet Count 133 thou/uL (130-400); RBC Distribution Width 14.6 % (11.5-14.5); Red Blood Cell (RBC) Count 3.16 mill/uL (4.20-5.40); White Blood Cell (WBC) Count 6.2 thou/uL (4.8-10.8)
[2020-01-27] MEDS ORDERED: Azithromycin 500 MG VIAL ONE (17:43)
[2020-01-27 17:47] LABS: ALT (SGPT) 7 U/L (8-55); AST (SGOT) 12 U/L (5-34); Albumin 3.6 g/dL (3.4-4.8); Alkaline Phosphatase 79 U/L (40-110); Anion Gap 16 mmol/L (10-20); BUN (Urea Nitrogen) 20 mg/dL (9.8-20.1); Bilirubin, Total 0.2 mg/dL (0.2-1.2); Calc. Creatinine Clearance 0 mL/min (70-130); Carbon Dioxide 24 mmol/L (23-31); Chloride 106 mmol/L (98-107); Estimated GFR-MDRD 53; Glucose 97 mg/dL (83-110); Protein, Total 6.6 g/dL (6.0-8.3); Sodium 141 mmol/L (136-145)
[2020-01-27] MEDS ORDERED: Carbidopa/Levodopa 25-100 mg Tablet PO SCH ×2 (19:15→23:45)
[2020-01-27 20:53] LABS: Troponin I 0.013 ng/mL (< 0.028)
[2020-01-27] MEDS ORDERED: Acetaminophen 325 MG TAB PO PRN (21:30)
[2020-01-27] MEDS ORDERED: Ondansetron ODT 4 MG TAB SL PRN (21:30)
[2020-01-27] MEDS ORDERED: Ondansetron PF 4 MG/2 ML Vial IVP PRN (21:30)
[2020-01-27] MEDS ORDERED: Sodium Chloride 0.9% 1,000 ML IV SCH (22:00)
--- NOTE | 2020-01-27 22:46 | PDOC.HHP ---
Hospitalist HPI - History of Present Illness right sided chest pain History of Present Illness: Patient presents to the hospital with complaints of right sided chest pain that started today that she noticed was tender to touch. She describes pressure and states her daughter called EMS. She was given Aspirin. There was some slight improvement. States she has had a productive cough for quite some time. Unable to state for how long, asked if days, weeks or months but she thinks it may have been a month ago that it started. She spits sputum into a tissue and does not look at it. Unknown if purulent or if any hemoptysis. Reports seeing Dr. Borrego since her cough started and was given a medication for her cough. She states her cough has worsened as of recently. Denies any shortness of breath. Reports having a reduced appetite. Denies any fevers or chills. Has not been febrile at home. She has a history of a stroke with residual left hand weakness. Also has tremors due to history of Parkinson's. She uses a walker which helps well with her mobility. 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 She took her medications as normal today but noticed difficulty swallowing the large pills which she skipped. Patient unsure which medications those were. Her daughters typically give her the medications in a cup. Reports occasional coughing/difficulty swallowing when eating but states it does not happen regularly. Denies any nausea or vomiting. Of note, she is a patient of Dr. Mendez. ED COURSE: 12 lead EKG shows normal sinus rhythm, Rate (beats per minute): 66, with no ectopics, Conduction normal, ST segments normal, T waves normal. Initial troponin negative. CXR done showed small region of mildly increased attenuation at the right lower lung zone focally, similar to prior study Given her evening dose of Carbidopa/Levodopa. Started on IV Azithromycin. PAST MEDICAL HISTORY: 1. CHF 2. 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 4. CKD 5. Hyperlipidemia. 6. GERD. 7. Carpal tunnel. 8. Gout. 9. Insomnia. 10. Dementia. 11. Rheumatoid arthritis. 12. Osteoarthritis 13. Hypertension. 14. Spondylolisthesis. 15. Lumbar stenosis. 16. Anxiety. 17. Depression. PAST SURGICAL HISTORY: 1. Appendectomy. 2. Cholecystectomy. 3. Hysterectomy. 4. Left knee surgery. 5. Cataract surgery. 6. D&C x 3. FAMILY HISTORY: Noncontributory. SOCIAL HISTORY: Denies any alcohol consumption, no tobacco use, no smoking history. She lives with her daughter. ALLERGIES: 1. Hydrocodone. 2. Ibuprofen. 3. Morphine. 4. Red dye. 5. Vicodin. CURRENT MEDICATIONS: 1. Gabapentin. 2. Amlodipine. 3. Carvedilol. 4. Carbidopa-Levodopa. 5. Allopurinol. 6. Atorvastatin. 7. Fluoxetine. 8. Tizanidine. 9. Donepezil. 10. Aspirin. 11. Drisdol. 12. Torsemide. 13. Sulfasalazine. - Exam General Appearance: NAD, awake alert General - other findings: BP: 125/44, Pulse: 75, Resp: 20, Pain: 3, O2 sat: 100 on (Room Air) Eye: PERRL, anicteric sclera ENT: normocephalic atraumatic, no oropharyngeal lesions Neck: supple, symmetric, no JVD, no thyromegaly, no lymphadenopathy Heart: RRR, no murmur, no gallops, no rubs, normal peripheral pulses Respiratory: CTAB, no wheezes, no rales, no ronchi, normal chest expansion Gastrointestinal: soft, non-tender, non-distended, normal bowel sounds, no guarding, no rigidity Extremities: no edema Skin: normal turgor, no lesions, no rashes Neurological - other findings: left hand weakness chronic, resting tremor in right upper extremity. Musculoskeletal: normal tone, normal strength Psychiatric: normal affect, normal behavior, A&O x 3 Hospitalist Results - Labs Result Diagrams: 01/27/20 17:10 01/27/20 17:10 Lab results: WBC 6.2 thou/uL (4.8-10.8) 01/27/20 17:10 Hgb 10.2 g/dL (12.0-16.0) L 01/27/20 17:10 Hct 29.4 % (36.0-47.0) L 01/27/20 17:10 MCV 93.1 fL (78.0-98.0) 01/27/20 17:10 Plt Count 133 thou/uL (130-400) 01/27/20 17:10 Neutrophils % 58.8 % (42.0-75.0) 01/27/20 17:10 Sodium 141 mmol/L (136-145) 01/27/20 17:10 Potassium 5.0 mmol/L (3.5-5.1) 01/27/20 17:10 Chloride 106 mmol/L (98-107) 01/27/20 17:10 Carbon Dioxide 24 mmol/L (23-31) 01/27/20 17:10 BUN 20 mg/dL (9.8-20.1) 01/27/20 17:10 Creatinine 1.18 mg/dL (0.6-1.1) H 01/27/20 17:10 Glucose 97 mg/dL (83-110) 01/27/20 17:10 Calcium 9.0 mg/dL (7.8-10.44) 01/27/20 17:10 Total Bilirubin 0.2 mg/dL (0.2-1.2) 01/27/20 17:10 AST 12 U/L (5-34) 01/27/20 17:10 ALT 7 U/L (8-55) L 01/27/20 17:10 Alkaline Phosphatase 79 U/L (40-110) 01/27/20 17:10 Troponin I 0.013 ng/mL (< 0.028) 01/27/20 20:17 B-Natriuretic Peptide 39.5 pg/mL (0-100) 01/27/20 17:10 Serum Total Protein 6.6 g/dL (6.0-8.3) 01/27/20 17:10 Albumin 3.6 g/dL (3.4-4.8) 01/27/20 17:10 - Radiology Interpretation Chest x-ray Status: report reviewed by in Hospitalist H&P A/P - Problem (1) Chest pain Code(s): R07.9 - CHEST PAIN, UNSPECIFIED Status: Acute Assessment and Plan: Continue cardiac monitoring Trend troponins. Add-on D-Dimer. Could be MSK in nature given recent cough and tenderness. If D-Dimer elevated will obtain CTA to rule out PE. (2) Cough Code(s): R05 - COUGH Status: Acute Assessment and Plan: Productive but color sputum unknown. Treated for pneumonia due to changes on CXR however these were noted to be stable compared to previous imaging. No leukocytosis of fever. Lactic acid added on. Will hold off on further IV antibiotics. If D-Dimer negative, will obtain CT chest without contrast to further assess for pneumonia. Cough occasionally occurs while eating. Due to history of CVA with residual effects, I would like to assess for possible risk of aspiration. Will consult Speech therapy. Patient in agreement but does not want to be NPO as she states episodes are seldom. Sputum culture requested. (3) CHF (congestive heart failure) Code(s): I50.9 - HEART FAILURE, UNSPECIFIED Status: Chronic Assessment and Plan: Patient on torsemide. Will reconcile home medications once verified. Will add-on BNP to AM labs. No signs of fluid overload at present. (4) Hypertension Code(s): I10 - ESSENTIAL (PRIMARY) HYPERTENSION Status: Chronic Assessment and Plan: Monitor BP. Reconcile home meds once verified. (5) History of CVA with residual deficit Code(s): I69.30 - UNSPECIFIED SEQUELAE OF CEREBRAL INFARCTION Status: Chronic Assessment and Plan: PT/OT consulted. She has residual left side deficits. (6) Chronic kidney disease, stage 3 Code(s): N18.3 - CHRONIC KIDNEY DISEASE, STAGE 3 (MODERATE) Status: Chronic Assessment and Plan: Monitor renal function. Currently better than baseline. (7) Parkinson's disease Code(s): G20 - PARKINSON'S DISEASE Status: Chronic Assessment and Plan: Resume home medications. Carbidopa/Levodopa given ED but only half her normal dose. Will give an additional tablet. (8) Dementia Code(s): F03.90 - UNSPECIFIED DEMENTIA WITHOUT BEHAVIORAL DISTURBANCE Status: Chronic (9) Hyperlipidemia Code(s): E78.5 - HYPERLIPIDEMIA, UNSPECIFIED Status: Chronic Assessment and Plan: Resume home medications once verified. Check lipid panel with AM labs. (10) GERD (gastroesophageal reflux disease) Code(s): K21.9 - GASTRO-ESOPHAGEAL REFLUX DISEASE WITHOUT ESOPHAGITIS Status: Chronic - Plan Plan: ADDENDUM: D-dimer elevated, however patient refusing CTA. Would like to wait until the morning.
[2020-01-27 23:17] VITALS: BMI 33.5
[2020-01-27] MEDS ORDERED: tiZANidine HCl 4 MG TAB PO PRN (23:44)
[2020-01-27] MEDS ORDERED: Carvedilol 25 MG TAB PO SCH (23:45)
[2020-01-27] MEDS ORDERED: Gabapentin 300 MG CAP PO SCH (23:45)
[2020-01-27] MEDS ORDERED: sulfaSALAzine 500 MG TAB PO SCH (23:45)
[2020-01-27] MEDS ORDERED: diphenhydrAMINE 25 MG CAP PO SCH (23:45)
[2020-01-27] MEDS ORDERED: Atorvastatin Calcium 40 MG TAB PO SCH (23:45)
[2020-01-27] MEDS ORDERED: Acetaminophen 325 MG TAB PO SCH (23:45)
[2020-01-27 23:51] LABS: Troponin I 0.022 ng/mL (< 0.028)
[2020-01-28 04:00] LABS: #Lymphocytes 2.1 thou/uL (1.20-3.40); #Monocytes 0.5 thou/uL (0.11-0.59); #Neutrophils 3.3 thou/uL (1.40-6.50); %Basophils 0.8 % (0.0-1.0); %Eosinophils 0.3 % (0.0-10.0); %Lymphocytes 35.4 % (21.0-51.0); %Monocytes 8.7 % (0.0-10.0); %Neutrophils 54.9 % (42.0-75.0); Hemoglobin 9.7 g/dL (12.0-16.0); Mean Corpuscular HGB CONC 34.2 g/dL (32.0-36.0); Mean Corpuscular Hemoglobin 32.1 pg (27.0-31.0); Mean Corpuscular Volume 93.9 fL (78.0-98.0); Platelet Count 131 thou/uL (130-400); RBC Distribution Width 14.6 % (11.5-14.5); Red Blood Cell (RBC) Count 3.02 mill/uL (4.20-5.40)
[2020-01-28 04:23] LABS: Anion Gap 14 mmol/L (10-20); BUN (Urea Nitrogen) 19 mg/dL (9.8-20.1); Calc. Creatinine Clearance 55 mL/min (70-130); Carbon Dioxide 22 mmol/L (23-31); Chloride 107 mmol/L (98-107); Estimated GFR-MDRD 65; Glucose 107 mg/dL (83-110); Potassium 4.3 mmol/L (3.5-5.1); Sodium 139 mmol/L (136-145)
[2020-01-28] MEDS ORDERED: Aspirin 325 mg Enteric Coated Tablet PO SCH (09:00)
[2020-01-28] MEDS ORDERED: Acetaminophen 325 MG TAB PO SCH (09:00)
--- NOTE | 2020-01-28 10:00 | CT ---
CTA THORAX WITH CONTRAST: (Computed Tomographic Angiography, chest(noncoronary) with contrast material, and image postprocessin g) (PE protocol) DATE: 01/28/2020 TIME: 0818 HOURS HISTORY: 79-year-old female with chest pain. TECHNIQUE: IV injection of iodinated contrast: 60 mL Isovue 370. Scan acquisition timing attempted to coincide with iodinated contrast bolus reaching maximal density in pulmonary arteries. 3D MIP reconstructions. FINDINGS: Nonspecific mild ground-glass changes in right upper lobe and bases of bilateral lower lobes. No pneu mothorax. Heavy atherosclerotic plaque, both calcified and noncalcified, of aortic arch and descendin g thoracic aorta. No thoracic aortic aneurysm, acute dissection, or rupture. Very good opacification of pulmonary arteries. Small filling defect suspicious for clot in first orde r branch of right lower lobe pulmonary artery. Another such clot in third or fourth order posterobasi lar segment branch of right lower lobe pulmonary artery. No such thrombus identified in contralateral left pulmonary artery branches. No thrombus identified in pulmonic trunk, or left and right main pul monary arteries. No pleural effusion or pneumothorax. 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 No mediastinal or hilar lymphadenopathy. IMPRESSION: 1. Positive for very mild pulmonary thromboembolism involving lower lobe branches of right pulmonary artery. 2. Atherosclerotic disease of thoracic aorta. CODE T. jn[]
[2020-01-28] MEDS: sulfaSALAzine 500 MG TAB PO SCH ×2 (10:40→21:24)
[2020-01-28] MEDS: Dicyclomine 10 MG CAP PO SCH ×3 (10:40→21:25)
[2020-01-28] MEDS: Allopurinol 100 MG TAB PO SCH (10:40)
[2020-01-28] MEDS: Carvedilol 25 MG TAB PO SCH ×2 (10:41→17:57)
[2020-01-28] MEDS: Amlodipine 5 MG TAB PO SCH (10:41)
[2020-01-28] MEDS: Carbidopa/Levodopa 25-100 mg Tablet PO SCH ×3 (10:42→21:25)
[2020-01-28] MEDS: Gabapentin 300 MG CAP PO SCH ×2 (10:42→21:25)
[2020-01-28] MEDS: Donepezil HCl 5 MG TAB PO SCH (10:42)
[2020-01-28] MEDS: Multivit, Therapeutic 1 TAB PO SCH (10:43)
[2020-01-28] MEDS: FLUoxetine HCl 20 MG CAP PO SCH (10:43)
[2020-01-28] MEDS ORDERED: Enoxaparin Sodium 80 MG/0.8 ML SYRINGE SC SCH ×2 (11:00→21:00)
[2020-01-28 12:02] LABS: SARS-CoV-2 MS2 Positive; SARS-CoV-2 N Gene Negative; SARS-CoV-2 S Gene Negative; SARS-CoV-2 by NAA Not Detected (NotDetected); SARS-CoV-2 orf1ab Negative
--- NOTE | 2020-01-28 12:59 | PDOC.HOSPP ---
- Subjective Encounter Date: 01/28/20 Encounter Time: 10:30 Subjective: pt up in bed no complains - Objective Vital Signs & Weight: Vital Signs (12 hours) Temp Pulse Resp BP BP Pulse Ox 01/28/20 12:00 98.3 F 70 16 134/58 L 96 01/28/20 10:41 70 01/28/20 08:00 98.5 F 69 17 146/66 H 96 01/28/20 04:16 98.4 F 84 16 116/81 96 Weight Weight 171 lb 15.369 oz I&O: 01/27/20 01/28/20 01/29/20 06:59 06:59 06:59 Intake Total 240 Balance 240 Result Diagrams: 01/28/20 03:44 01/28/20 03:44 Hospitalist ROS - Review of Systems Cardiovascular: denies: chest pain, palpitations, orthopnea, paroxysmal noc. dyspnea, edema, light headedness, other Gastrointestinal: denies: nausea, vomiting, abdominal pain, diarrhea, constipation, melena, hematochezia, other Genitourinary: denies: dysuria, frequency, incontinence, hematuria, retention, other - Medication Medications: Active Medications Generic Name Dose Route Start Last Admin Trade Name Freq PRN Reason Stop Dose Admin Allopurinol 100 mg 01/28/20 09:00 01/28/20 10:40 Allopurinol 100 Mg Tab PO 100 mg DAILY MAICO Administration Amlodipine Besylate 5 mg 01/28/20 09:00 01/28/20 10:41 Amlodipine 5 Mg Tab PO 5 mg DAILY MAICO Administration Aspirin 325 mg 01/28/20 09:00 01/28/20 10:42 Aspirin 325 Mg Enteric Coated Tablet PO 325 mg DAILY MAICO Administration Carbidopa/Levodopa 2 tab 01/28/20 09:00 01/28/20 10:42 Carbidopa/Levodopa 25-100 Mg Tablet PO 2 tab TID MAICO Administration Carvedilol 25 mg 01/28/20 08:00 01/28/20 10:41 Carvedilol 25 Mg Tab PO 25 mg BID-WM MAICO Administration Dicyclomine HCl 10 mg 01/28/20 09:00 01/28/20 10:40 Dicyclomine 10 Mg Cap PO 10 mg TID MAICO Administration Donepezil HCl 10 mg 01/28/20 09:00 01/28/20 10:42 Donepezil Hcl 5 Mg Tab PO 10 mg DAILY MAICO Administration Enoxaparin Sodium 80 mg 01/28/20 11:00 01/28/20 12:00 Enoxaparin Sodium 80 Mg/0.8 Ml Syringe SC 01/28/20 13:00 80 mg NOW MAICO Administration Fluoxetine HCl 20 mg 01/28/20 09:00 01/28/20 10:43 Fluoxetine Hcl 20 Mg Cap PO 20 mg DAILY MAICO Administration Gabapentin 300 mg 01/28/20 09:00 01/28/20 10:42 Gabapentin 300 Mg Cap PO 300 mg BID MAICO Administration Sodium Chloride 1,000 mls @ 50 mls/hr 01/27/20 22:00 01/28/20 00:09 Normal Saline 0.9% IV 1,000 mls .Q20H AMICO Administration Multivitamins 1 tab 01/28/20 09:00 01/28/20 10:43 Multivit, Therapeutic 1 Tab PO 1 tab DAILY MAICO Administration Sulfasalazine 1,000 mg 01/28/20 09:00 01/28/20 10:40 Sulfasalazine 500 Mg Tab PO 1,000 mg BID MAICO Administration - Exam Neck: negative: supple, symmetric, no JVD, no thyromegaly, no lymphadenopathy, no carotid bruit, JVD Heart: negative: RRR, no murmur, no gallops, no rubs, normal peripheral pulses, irregular, diminshed peripheral pulses, murmur present, II/IV, III/IV Respiratory: negative: CTAB, no wheezes, no rales, no ronchi, normal chest expansion, no tachypnea, normal percussion, rales, rhonchi, tachypneic, wheezes Hosp A/P (1) Pulmonary emboli Code(s): I26.99 - OTHER PULMONARY EMBOLISM WITHOUT ACUTE COR PULMONALE Status: Acute (2) Cough Code(s): R05 - COUGH Status: Acute (3) GERD (gastroesophageal reflux disease) Code(s): K21.9 - GASTRO-ESOPHAGEAL REFLUX DISEASE WITHOUT ESOPHAGITIS Status: Chronic (4) History of CVA with residual deficit Code(s): I69.30 - UNSPECIFIED SEQUELAE OF CEREBRAL INFARCTION Status: Chronic (5) Chest pain Code(s): R07.9 - CHEST PAIN, UNSPECIFIED Status: Acute - Plan pt has a small pe will start her lovenox and switch to eliquis. Tried to call daughter but no answer so left message. upon revieweing chart pt has had a cavernoma and changes in her parital/occipital lobe. I have tried calling the daughter twice and left message. will order MRI brain not sure if she has had this outpatient. she has had multiple ct brain. will order venous dopplers. the pe is very small.
--- NOTE | 2020-01-28 14:45 | MRI ---
Exam: Brain MRI without contrast HISTORY: Abnormal MRI finding on previous MRI. COMPARISON: 04/14/2019. FINDINGS: Calvarial marrow signal intensity: Appropriate T1 signal. Gradient echo sequence: Stable hemosiderin deposition involving the medial right frontal lobe. There is mild encephalomalacia and gliosis on the T2 and FLAIR sequences. Brain parenchyma: There is T2 and FLAIR hyperintensity involving the medial right frontal lobe, right parietal lobe and right occipital lobe. The overall degree of signal abnormality is similar to the previous examination. Post treatment change versus remote insult are differential considerations. Cortical chatterjee-white matter differentiation: With the exception of the posterior right cerebrum, corti fela chatterjee-white matter differentiation is preserved. Restricted diffusion: Central arterial flow voids are maintained. Absent restricted diffusion. White matter signal intensities:T2 and FLAIR white matter hyperintensities involving the posterior ri ght cerebrum as described above. Additional minimal white matter hyperintensities are likely due to chronic small vessel ischemic change. Sinuses: Mild mucosal thickening of the paranasal sinuses. Additional findings: There is extensive degenerative change with possible fusion of the disc spaces i nvolving the upper cervical spine with deformity the cervical cord secondary to kyphosis. IMPRESSION: 1. Absent restricted diffusion. No acute infarct. 2. Presumed chronic changes involving the right cerebrum. 3. Extensive fusion changes and irregularity involving the cervical spine with resultant kyphosis def ormity of the visualized cervical cord. Transcribed Date/Time: 01/28/2020 2:50 PM
--- NOTE | 2020-01-28 15:58 | ULT ---
BILATERAL LOWER EXTREMITY VENOUS DOPPLER ULTRASOUND: 01/28/20 HISTORY: Pulmonary embolism involving the lower lobe branches of the right pulmonary artery on earlier exam to day. TECHNIQUE: Campbell scale, color flow and spectral Doppler imaging of the deep venous systems of the lower extremiti es performed bilaterally. FINDINGS: There is good flow, compression, and augmentation noted in the common femoral, femoral, deep femoral, popliteal, posterior tibial and greater saphenous veins on either side. IMPRESSION: No evidence of DVT in either lower extremity. POS: AH
[2020-01-28] MEDS ORDERED: Iopamidol-370 76% 500 ML 1 ML ONE (16:12)
[2020-01-28] MEDS: Acetaminophen 325 MG TAB PO PRN (18:27)
[2020-01-28] MEDS ORDERED: diphenhydrAMINE 25 MG CAP PO SCH (21:00)
[2020-01-28] MEDS ORDERED: Atorvastatin Calcium 40 MG TAB PO SCH (21:00)
[2020-01-28] MEDS: Apixaban 5 MG TAB PO SCH (21:25)
--- NOTE | 2020-01-28 22:18 | PRG ---
DATE OF SERVICE: 01/28/2020 SUBJECTIVE: Nicola Mooney is an 79-year-old female. taking care of her son. Her daughter works for me. Her daughter asked me to look in on her because she had been told she was in the hospital with pneumonia. Ms. Mooney is a very pleasant, but sedentary 79-year-old female. Since COVID started, her daughter tells me that her physician told her to stay home and not get out at all, so she has taken that to hard and stays in her room all day. She started having some right-sided discomfort, which she said it hurt when she pushed on her chest. She decided at the urging of her daughter to call an ambulance. She subsequently was admitted after a CT angiogram showed multiple small right lower lobe clots. Her Doppler venogram is negative. Confounding factor is that she has a cavernoma, that has been followed for several years locally. She actually has a history of bleed into this cavernoma in the past. I have discussed the above with Dr. Grant. PAST MEDICAL HISTORY: 1. Remarkable for cardiomyopathy. 2. History of Parkinson's. 3. History of a bleed with left hand weakness residual. 4. Chronic kidney disease with a normal creatinine this admission. 5. History of lipid disorder. 6. History of reflux disease. 7. History of carpal tunnel disease. 8. History of rheumatoid arthritis. 9. Daughter tells me she has dementia, but I walked into the room, she called me by name and I have not seen her in many years. 10. History of osteoarthritis. 11. History of hypertension. 12. History of lumbar stenosis. 13. History of an appendectomy and a cholecystectomy. 14. Status post hysterectomy. 15. History of knee surgery. 16. History of cataract surgery. SOCIAL HISTORY: She is a nonsmoker and nondrinker. Lives with one of her daughters. FAMILY HISTORY: Negative for lung disease in early age. ALLERGIES: REPORTS MULTIPLE DRUG ALLERGIES. THESE HAVE BEEN REVIEWED. MEDICATIONS: Prior to admission, she was on; 1. Gabapentin. 2. Amlodipine. 3. Coreg. 4. Carbidopa/levodopa. 5. Allopurinol. 6. Atorvastatin. 7. Fluoxetine. 8. Tizanidine. 9. Donepezil. 10. Aspirin. 11. Drisdol. 12. Torsemide. 13. Sulfasalazine. PHYSICAL EXAMINATION: GENERAL: She is very pleasant and cooperative. She is in absolutely no distress. She is afebrile. VITAL SIGNS: Heart rate is 88, respiratory rate 16, oximetry is 97% on room air, blood pressure 116/59. HEAD AND NECK: Unremarkable. She has no lymphadenopathy. LUNGS: Clear. HEART: Regular rhythm. S1 and S2 are normal. There is grade 1 to 2/6 systolic murmur. ABDOMEN: Soft and nontender. EXTREMITIES: Without clubbing, cyanosis, or edema. LABORATORY DATA: White count 6, hemoglobin 9.7, platelets 131. Electrolytes are normal. IMPRESSION: Pulmonary embolism with a negative lower extremity Doppler at this point. It is unlikely that she has proximal iliac vein clot or inferior vena cava clot. She has had a bleed with her cavernoma in the past. She had an MRI of her brain today, which did not identify the cavernoma, but she did not have contrast with this MRI. I reviewed the 2018 MRI with contrast that shows this. I talked to Dr. Grant about this and he does not feel uncomfortable with anticoagulation (our neurosurgeon). I think it is reasonable given her clinical stability Eliquis. In this case, I would probably treat her with three months of full-dose anticoagulation and then switch her to prophylactic dose anticoagulation. The biggest problem she is facing right now is her absolute inactivity. I think she is at high risk for recurrence given her inactivity. She also has a fall risk, so I would like to anticoagulate her for a shorter period of time as possible. We will stop her Lovenox after tonight's dose. We will start her on Eliquis in the morning and she could be discharged home with Eliquis in the morning in my opinion. I will be happy to follow her in my clinic. TIME SPENT: This is a 50-minute consult, 50% of the time spent on the unit coordinating care. Job ID: [id number]
[2020-01-29] MEDS: Acetaminophen 325 MG TAB PO PRN ×2 (00:09→09:14)
[2020-01-29 04:51] LABS: Hemoglobin 9.3 g/dL (12.0-16.0); Platelet Count 130 thou/uL (130-400)
[2020-01-29] MEDS ORDERED: Aspirin 81 mg Enteric Coated Tablet PO SCH (09:00)
[2020-01-29] MEDS: FLUoxetine HCl 20 MG CAP PO SCH (09:09)
[2020-01-29] MEDS: Allopurinol 100 MG TAB PO SCH (09:09)
[2020-01-29] MEDS: Dicyclomine 10 MG CAP PO SCH ×2 (09:09→14:42)
[2020-01-29] MEDS: Donepezil HCl 5 MG TAB PO SCH (09:09)
[2020-01-29] MEDS: Multivit, Therapeutic 1 TAB PO SCH (09:09)
[2020-01-29] MEDS: Amlodipine 5 MG TAB PO SCH (09:10)
[2020-01-29] MEDS: Carbidopa/Levodopa 25-100 mg Tablet PO SCH ×2 (09:10→14:42)
[2020-01-29] MEDS: Gabapentin 300 MG CAP PO SCH (09:11)
[2020-01-29] MEDS: Carvedilol 25 MG TAB PO SCH (09:11)
[2020-01-29] MEDS: Apixaban 5 MG TAB PO SCH (09:12)
[2020-01-29] MEDS: sulfaSALAzine 500 MG TAB PO SCH (09:14)
--- NOTE | 2020-01-29 10:07 | CON ---
DATE OF CONSULTATION: 01/29/2020 Ms. Mooney is an 79-year-old woman who I have not seen, but I have reviewed her chart and imaging at the request of Dr. Capps, her primary physician caring for her during her stay at [facility]. 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 Capps desired us to begin anticoagulation for treatment of pulmonary embolism and prevention of catastrophic sequelae, but had concerns about bleed risk for cavernoma given this is something that Dr. Grant in our practice has been following. Review of her MRI does show areas of hemosiderin staining, likely assistance representative of cavernoma presence, but no obvious area of acute or subacute bleeding. While there is a risk that the patient's cavernoma could hemorrhage and being on anticoagulation this could certainly worsen that impact, the more acute and likely higher risk for immediate morbidity and mortality is her pulmonary embolism, so our recommendation would be to anticoagulate the patient with the understanding that there is risk for spontaneous bleeding of the cavernoma unrelated to anticoagulation, but if this were to occur that the hemorrhage severity may be increased secondary to anticoagulation. Again, I have not seen this patient. Job ID: [id number]
[2020-01-29] MEDS ORDERED: Apixaban 5 MG TAB PO SCH ×2 (10:30→21:00)
[2020-01-29 11:29] VITALS: BP 119/58; TEMP 96.2
--- NOTE | 2020-01-29 11:39 | PRG ---
DATE OF SERVICE: 01/29/2020 SUBJECTIVE: Ms. Mooney is doing well. She has no complaints. She is ambulating with a walker with physical therapy this morning. She got back in bed with some assistance. OBJECTIVE: VITAL SIGNS: She is afebrile, heart rate 67, blood pressure 126/83, oximetry is 95% to 98% on room air. LUNGS: Clear. HEART: Regular rhythm. ABDOMEN: Soft. IMPRESSION: 1. Thromboembolic disease. 2. Anemia with normal mean corpuscular volume. PLAN: This will need to be followed by the primary care physician as an outpatient. She is on Eliquis now. I would treat her for 3 months and then switch her to prophylactic dose Eliquis, unless she has a bleeding complication nor has falls. I will be happy to see her as an outpatient. Job ID: [id number]
--- NOTE | 2020-01-29 11:40 | PDOC.EVN ---
Event Note - Event Note Event Note: Was texted by Dr Cobb who requested pt to be inpatient.
--- NOTE | 2020-01-30 13:42 | DIS ---
DATE OF ADMISSION: 01/29/2020 DATE OF DISCHARGE: 01/29/2020 DISCHARGE DIAGNOSES: 1. Pulmonary embolus. 2. Chest pain. 3. Parkinson's. 4. Hypertension. HOSPITAL COURSE: The patient is a very pleasant 79-year-old female, who initially presented to the hospital with complaints of chest pain. At this time, her troponins were negative, however, she had an elevated D-dimer, underwent a CTA, which indicated positive for very mild pulmonary embolism involving the right lower lobe branches. That is where her pain was on the right side of her chest. The patient, however, upon reviewing her chart, was noted to have some history of cavernoma and also possible small brain bleed due to multiple falls. I did get in touch with the neurosurgeon, who reviewed the chart and the patient was okay to be started on anticoagulation. I discussed this significantly with the patient's daughter, Getachew also. Discussed the risk of bleeding even on the medications given her history and also encouraged the patient to try not to have falls and watch her very carefully at home. I will resume the home health and home PT. She will follow up with Pulmonology as outpatient. The patient will be discharged. She will follow up with her primary and her home medications will be: 1. Eliquis 10 mg twice a day for 7 days and then 5 mg twice a day. 2. Aspirin since she has had a history of TIAs in the past and strokes. 3. Donepezil 10 mg daily. 4. Norvasc 5 mg daily. 5. Allopurinol 100 mg daily. 6. Atorvastatin 40 mg at bedtime. 7. Carbidopa/levodopa 2 tabs t.i.d. 8. Coreg 25 mg b.i.d. 9. Gabapentin 300 mg b.i.d. 10. Sulfasalazine 1000 b.i.d. 11. Torsemide 40 mg daily. 12. Protonix 20 mg daily. 13. Multivitamin 1 p.o. daily. PHYSICAL EXAMINATION: VITAL SIGNS: On discharge, temperature of 98.2, 67, 98% on room air, 126/63. GENERAL: She is awake, alert, and oriented x3. Does not appear in distress. CV: S1, S2 present. No murmurs, rubs, or gallops. Again, she will be discharged home. She will follow up with her primary. Job ID: [id number]
== END 2020-01-29 15:00 | disposition home health service (06) | DRG 176 ==
LOC: ERS 15:37 → 2NO 19:21 → OBSVTOIN 01-29 11:38
PROVIDERS: ADMIT Internal Medicine; ATTEND Internal Medicine
DX: I26.99 Other pulmonary embolism without acute cor pulmonale (principal); I69.354 Hemiplegia and hemiparesis following cerebral infarction affecting left non-dominant side; I13.0 Hypertensive heart and chronic kidney disease with heart failure and stage 1 through stage 4 chronic kidney disease, or unspecified chronic kidney disease; Z20.828 Contact with and (suspected) exposure to other viral communicable diseases; G20 Parkinson's disease; E78.5 Hyperlipidemia, unspecified; K21.9 Gastro-esophageal reflux disease without esophagitis; M10.9 Gout, unspecified; G47.00 Insomnia, unspecified; M06.9 Rheumatoid arthritis, unspecified; M19.90 Unspecified osteoarthritis, unspecified site; F02.80 Dementia in other diseases classified elsewhere, unspecified severity, without behavioral disturbance, psychotic disturbance, mood disturbance, and anxiety; I50.9 Heart failure, unspecified; D64.9 Anemia, unspecified; F41.9 Anxiety disorder, unspecified; N18.3 Chronic kidney disease, stage 3 (moderate); F32.9 Major depressive disorder, single episode, unspecified; Z90.49 Acquired absence of other specified parts of digestive tract; Z90.710 Acquired absence of both cervix and uterus; Z88.5 Allergy status to narcotic agent; Z88.8 Allergy status to other drugs, medicaments and biological substances; Z79.82 Long term (current) use of aspirin
CPT/HCPCS: 36415; 70551; 71045; 71275; 80048; 80053; 82565; 83880; 84484; 85014; 85018; 85025; 85049; 85379; 87635; 93005; 93970; 96365; J0456; J1650; Q0163; Q9967; U0003

== ENCOUNTER 2020-03-12 11:23 | Outpatient (CLI) | payer MEDICARE, MEDICAID ==
--- NOTE | 2020-03-12 11:53 | MMO ---
Bilateral MAMMO Bilat Screen [facility]. CLINICAL HISTORY: Patient is 79 years old and is seen for screening. The patient has the following family history of breast cancer: niece, at age 30. The patient has no personal history of cancer. VIEWS: The views performed were: bilateral craniocaudal with tomosynthesis and bilateral mediolateral oblique with tomosynthesis. FILMS COMPARED: The present examination has been compared to prior imaging studies performed at [facility] on 09/09/2007, 10/06/2008, 09/05/2012 and 01/29/2019. This study has been interpreted with the assistance of computer-aided detection. MAMMOGRAM FINDINGS: There are scattered fibroglandular densities. There are no suspicious masses, suspicious calcifications, or new areas of architectural distortion. IMPRESSION: THERE IS NO MAMMOGRAPHIC EVIDENCE OF MALIGNANCY. A ROUTINE FOLLOW-UP MAMMOGRAM IN 1 YEAR IS RECOMMENDED. THE RESULTS OF THIS EXAM WERE SENT TO THE PATIENT. ACR BI-RADS Category 1 - Negative MAMMOGRAPHY NOTE: 1. A negative mammogram report should not delay a biopsy if a dominant of clinically suspicious mass is present. 2. Approximately 10% to 15% of breast cancers are not detected by mammography. 3. Adenosis and dense breasts may obscure an underlying neoplasm. Reported by: MAYEKL CHRISTIANSON MD Electonically Signed: [id number]
== END 2020-03-12 11:24 | disposition home or self-care (01) ==
LOC: BICMAMMO 11:23
PROVIDERS: ATTEND Physician Assistant
DX: Z12.31 Encounter for screening mammogram for malignant neoplasm of breast (principal); Z80.3 Family history of malignant neoplasm of breast
CPT/HCPCS: 77063; 77067

== ENCOUNTER 2020-07-14 10:31 | Outpatient (CLI) | payer MEDICARE, MEDICAID | END 2020-07-14 10:32 | disposition home or self-care (01) | LOC: RAD 10:31 | PROVIDERS: ATTEND Specialist | DX: R13.10 Dysphagia, unspecified (principal) | CPT/HCPCS: 74220 ==

== ENCOUNTER 2020-07-19 10:32 | Outpatient (CLI) | payer MEDICARE, MEDICAID | END 2020-07-19 10:33 | disposition home or self-care (01) | LOC: BICCT 10:32 | PROVIDERS: ATTEND Physician Assistant | DX: R10.9 Unspecified abdominal pain (principal); R11.2 Nausea with vomiting, unspecified; N28.89 Other specified disorders of kidney and ureter | CPT/HCPCS: 74150 ==

== ENCOUNTER 2021-04-17 01:04 | Inpatient (IN) | payer MEDICARE, MEDICAID ==
[2021-04-17] MEDS ORDERED: Piperacillin/Tazobactam 3.375 GM VIAL ONE (01:38)
[2021-04-17] MEDS ORDERED: Vancomycin 1 GM/200 ML BAG ONE (01:38)
[2021-04-17 01:57] LABS: #Lymphocytes 2.3 thou/uL (1.20-3.40); #Monocytes 0.9 thou/uL (0.11-0.59); #Neutrophils 5.9 thou/uL (1.40-6.50); %Basophils 0.5 % (0.0-1.0); %Eosinophils 0.4 % (0.0-10.0); %Lymphocytes 24.9 % (21.0-51.0); %Monocytes 9.8 % (0.0-10.0); %Neutrophils 64.5 % (42.0-75.0); Hemoglobin 10.8 g/dL (12.0-16.0); Mean Corpuscular Hemoglobin 33.5 pg (27.0-31.0); Mean Corpuscular Volume 93.1 fL (78.0-98.0); Mean Platelet Volume 9.7 fL (7.4-10.4); Platelet Count 149 thou/uL (130-400); RBC Distribution Width 12.5 % (11.5-14.5); Red Blood Cell (RBC) Count 3.23 mill/uL (4.20-5.40); White Blood Cell (WBC) Count 9.1 thou/uL (4.8-10.8)
[2021-04-17 02:09] LABS: ALT (SGPT) Less than 7 U/L (8-55); AST (SGOT) 7 U/L (5-34); Albumin 3.1 g/dL (3.4-4.8); Alkaline Phosphatase 72 U/L (40-110); Anion Gap 14 mmol/L (10-20); BUN (Urea Nitrogen) 12 mg/dL (9.8-20.1); Bilirubin, Total 0.4 mg/dL (0.2-1.2); Calc. Creatinine Clearance 0 mL/min (70-130); Calcium 8.2 mg/dL (7.8-10.44); Carbon Dioxide 23 mmol/L (23-31); Chloride 104 mmol/L (98-107); Globulin 2.9 g/dL (2.4-3.5); Glucose 204 mg/dL (83-110); Potassium 3.4 mmol/L (3.5-5.1); Sodium 138 mmol/L (136-145)
[2021-04-17 04:30] LABS: Bilirubin Negative (Negative); Blood, Urine Negative (Negative); Clarity Clear (Clear); Glucose, Urine (Dipstick) Normal (Negative); Ketone, Urine Negative (Negative); Leukocyte Negative Leu/uL (Negative); Nitrite Negative (Negative); Protein, Urine (Dipstick) Negative (Neg-Trace); Urobilinogen Normal mg/dL (Less than 2); pH, Urine 6.5 (5.0-9.0)
[2021-04-17 04:34] LABS: Specific Gravity, Urine 1.046 (1.002-1.036)
[2021-04-17 04:43] LABS: Lactic Acid 1.5 mmol/L (0.5-2.2)
[2021-04-17] MEDS ORDERED: Ondansetron PF 4 MG/2 ML Vial IVP PRN (05:11)
[2021-04-17 05:18] LABS: Magnesium 1.1 mg/dL (1.6-2.6)
[2021-04-17] MEDS ORDERED: Magnesium 2 GM/50 ML BAG (IN WATER) ONE (05:58)
[2021-04-17] MEDS ORDERED: Magnesium Sulfate 4 GM in Sodium Chloride 0.9% 250 ML 250 ML IVPB SCH (06:00)
[2021-04-17] MEDS ORDERED: Potassium Chloride 10 MEQ in Premix Bag 1 BAG IVPB SCH (06:00)
[2021-04-17] MEDS ORDERED: Sodium Chloride 0.9% 1,000 ML IV SCH (06:45)
[2021-04-17 06:52] VITALS: BMI 33.9
[2021-04-17] MEDS: Heparin 5,000 UNITS/ML VIAL SC SCH ×3 (08:01→21:22)
[2021-04-17] MEDS ORDERED: Vancomycin HCl 500 MG in Sodium Chloride 0.9% 100 ML IVPB SCH (08:15)
[2021-04-17] MEDS: Cefepime 1 GM in Sodium Chloride 0.9% 100 ML IVPB SCH ×2 (08:54→21:32)
[2021-04-17] MEDS ORDERED: Iopamidol-370 76% 500 ML 1 ML ONE (09:32)
[2021-04-17 13:04] LABS: Hemoglobin A1c 5.3 % (4.0-6.0)
[2021-04-17] MEDS: Acetaminophen 325 MG TAB PO PRN ×2 (16:15→21:31)
[2021-04-17 16:43] LABS: SARS-CoV-2 PCR by NAA Not Detected (NotDetected)
[2021-04-18 02:01] LABS: #Basophils 0.1 thou/uL (0.0-0.2); #Lymphocytes 2.2 thou/uL (1.20-3.40); #Monocytes 0.6 thou/uL (0.11-0.59); #Neutrophils 4.9 thou/uL (1.40-6.50); %Basophils 1.1 % (0.0-1.0); %Eosinophils 0.6 % (0.0-10.0); %Lymphocytes 28.5 % (21.0-51.0); %Monocytes 7.2 % (0.0-10.0); %Neutrophils 62.6 % (42.0-75.0); Hemoglobin 10.2 g/dL (12.0-16.0); Mean Corpuscular HGB CONC 35.2 g/dL (32.0-36.0); Mean Corpuscular Hemoglobin 32.7 pg (27.0-31.0); Mean Corpuscular Volume 92.8 fL (78.0-98.0); Mean Platelet Volume 9.2 fL (7.4-10.4); Platelet Count 157 thou/uL (130-400); RBC Distribution Width 12.5 % (11.5-14.5); Red Blood Cell (RBC) Count 3.11 mill/uL (4.20-5.40); White Blood Cell (WBC) Count 7.9 thou/uL (4.8-10.8)
[2021-04-18 02:23] LABS: ALT (SGPT) Less than 7 U/L (8-55); AST (SGOT) 11 U/L (5-34); Albumin 3.1 g/dL (3.4-4.8); Alkaline Phosphatase 72 U/L (40-110); Anion Gap 11 mmol/L (10-20); BUN (Urea Nitrogen) 8 mg/dL (9.8-20.1); Bilirubin, Total 0.3 mg/dL (0.2-1.2); Calc. Creatinine Clearance 71 mL/min (70-130); Calcium 8.5 mg/dL (7.8-10.44); Carbon Dioxide 22 mmol/L (23-31); Chloride 108 mmol/L (98-107); Globulin 3.3 g/dL (2.4-3.5); Glucose 111 mg/dL (83-110); Magnesium 2.1 mg/dL (1.6-2.6); Phosphorus 2.4 mg/dL (2.3-4.7); Potassium 3.5 mmol/L (3.5-5.1); Protein, Total 6.4 g/dL (5.8-8.1); Sodium 137 mmol/L (136-145)
[2021-04-18] MEDS ORDERED: Non-Formulary Item 1 EACH (Tizanidine Hcl [Zanaflex] 4 MG Capsule) PO PRN (07:16)
[2021-04-18] MEDS ORDERED: tiZANidine HCl 4 MG TAB PO PRN (07:30)
[2021-04-18] MEDS ORDERED: Torsemide 20 MG TAB PO SCH ×2 (07:30→09:00)
[2021-04-18] MEDS: Carvedilol 25 MG TAB PO SCH ×2 (07:55→10:46)
[2021-04-18] MEDS: sulfaSALAzine 500 MG TAB PO SCH ×3 (07:55→17:52)
[2021-04-18] MEDS: Acetaminophen 325 MG TAB PO PRN ×3 (07:56→21:37)
[2021-04-18] MEDS: Heparin 5,000 UNITS/ML VIAL SC SCH ×3 (08:00→20:55)
[2021-04-18] MEDS ORDERED: sulfaSALAzine 500 MG TAB PO SCH (09:00)
[2021-04-18] MEDS ORDERED: Non-Formulary Item 1 EACH (Pantoprazole Sodium [Pantoprazole Sodium] 20 MG Tablet.Dr) PO SCH (09:00)
[2021-04-18] MEDS ORDERED: CARBIDOPA PO SCH (09:00)
[2021-04-18] MEDS ORDERED: LEVODOPA PO SCH (09:00)
[2021-04-18] MEDS: Donepezil HCl 5 MG TAB PO SCH ×2 (09:57→11:18)
[2021-04-18] MEDS: Gabapentin 300 MG CAP PO SCH ×3 (09:58→21:37)
[2021-04-18] MEDS: Cefdinir 300 MG CAP PO SCH ×3 (09:58→20:55)
[2021-04-18] MEDS: Carbidopa/Levodopa 25-100 mg Tablet PO SCH ×4 (09:58→20:55)
[2021-04-18] MEDS: Allopurinol 100 MG TAB PO SCH ×2 (09:58→11:17)
[2021-04-18] MEDS: Aspirin 81 mg Enteric Coated Tablet PO SCH ×2 (09:59→11:18)
[2021-04-18] MEDS: Amlodipine 5 MG TAB PO SCH ×2 (09:59→11:17)
[2021-04-18] MEDS: FLUoxetine HCl 20 MG CAP PO SCH ×2 (09:59→11:18)
[2021-04-18] MEDS ORDERED: VANCOMYCIN 1.25 GM/250 ML BAG 1.25 GM in Premix Bag 1 BAG IVPB SCH (12:00)
[2021-04-18] MEDS: Carvedilol 6.25 MG TAB PO SCH (17:52)
[2021-04-18] MEDS: Atorvastatin Calcium 40 MG TAB PO SCH (20:54)
[2021-04-18] MEDS ORDERED: diphenhydrAMINE 25 MG CAP PO PRN (21:17)
[2021-04-19 05:52] LABS: #Lymphocytes 2.1 thou/uL (1.20-3.40); #Monocytes 0.7 thou/uL (0.11-0.59); #Neutrophils 4.8 thou/uL (1.40-6.50); %Basophils 0.1 % (0.0-1.0); %Eosinophils 0.2 % (0.0-10.0); %Lymphocytes 27.7 % (21.0-51.0); %Monocytes 8.9 % (0.0-10.0); %Neutrophils 63.1 % (42.0-75.0); Hemoglobin 9.7 g/dL (12.0-16.0); Mean Corpuscular HGB CONC 35.6 g/dL (32.0-36.0); Mean Corpuscular Hemoglobin 33.1 pg (27.0-31.0); Mean Corpuscular Volume 93.1 fL (78.0-98.0); Mean Platelet Volume 9.4 fL (7.4-10.4); Platelet Count 148 thou/uL (130-400); RBC Distribution Width 12.5 % (11.5-14.5); Red Blood Cell (RBC) Count 2.92 mill/uL (4.20-5.40); White Blood Cell (WBC) Count 7.6 thou/uL (4.8-10.8)
[2021-04-19 06:22] LABS: Anion Gap 8 mmol/L (10-20); BUN (Urea Nitrogen) 5 mg/dL (9.8-20.1); Calc. Creatinine Clearance 65 mL/min (70-130); Carbon Dioxide 28 mmol/L (23-31); Chloride 102 mmol/L (98-107); Glucose 105 mg/dL (83-110); Magnesium 1.5 mg/dL (1.6-2.6); Potassium 3.3 mmol/L (3.5-5.1); Sodium 135 mmol/L (136-145)
[2021-04-19] MEDS ORDERED: Enoxaparin Sodium 30 MG/0.3 ML SYRINGE SC SCH (09:00)
[2021-04-19] MEDS: Gabapentin 300 MG CAP PO SCH ×2 (09:47→21:08)
[2021-04-19] MEDS: Amlodipine 5 MG TAB PO SCH (09:47)
[2021-04-19] MEDS: Allopurinol 100 MG TAB PO SCH (09:48)
[2021-04-19] MEDS: Carvedilol 6.25 MG TAB PO SCH ×2 (09:48→16:39)
[2021-04-19] MEDS: Cefdinir 300 MG CAP PO SCH ×2 (09:49→21:08)
[2021-04-19] MEDS: Carbidopa/Levodopa 25-100 mg Tablet PO SCH ×3 (09:49→21:08)
[2021-04-19] MEDS: Aspirin 81 mg Enteric Coated Tablet PO SCH (09:49)
[2021-04-19] MEDS: sulfaSALAzine 500 MG TAB PO SCH ×2 (09:49→16:39)
[2021-04-19] MEDS: Donepezil HCl 5 MG TAB PO SCH (09:49)
[2021-04-19] MEDS: FLUoxetine HCl 20 MG CAP PO SCH (09:50)
[2021-04-19] MEDS: Acetaminophen 325 MG TAB PO PRN ×2 (09:53→16:39)
[2021-04-19] MEDS: Potassium Chloride 20 MEQ TAB PO SCH ×2 (16:40→21:09)
[2021-04-19 20:56] VITALS: BP 205/87; TEMP 98.2
[2021-04-19] MEDS: Atorvastatin Calcium 40 MG TAB PO SCH (21:08)
== END 2021-04-19 21:07 | DRG 871 ==
LOC: ERS 01:04 → NEURO 04:38
PROVIDERS: ADMIT Internal Medicine; ATTEND Internal Medicine
DX: A41.9 Sepsis, unspecified organism (principal); J18.9 Pneumonia, unspecified organism; I50.32 Chronic diastolic (congestive) heart failure; I13.0 Hypertensive heart and chronic kidney disease with heart failure and stage 1 through stage 4 chronic kidney disease, or unspecified chronic kidney disease; I69.354 Hemiplegia and hemiparesis following cerebral infarction affecting left non-dominant side; Z20.822 Contact with and (suspected) exposure to COVID-19; N18.30 Chronic kidney disease, stage 3 unspecified; G20 Parkinson's disease; K21.9 Gastro-esophageal reflux disease without esophagitis; E78.2 Mixed hyperlipidemia; D64.9 Anemia, unspecified; M06.9 Rheumatoid arthritis, unspecified; M19.90 Unspecified osteoarthritis, unspecified site; M10.9 Gout, unspecified; Z90.49 Acquired absence of other specified parts of digestive tract; Z98.890 Other specified postprocedural states
CPT/HCPCS: 36415; 70450; 71045; 74177; 80048; 80053; 81003; 83036; 83605; 83735; 83880; 84100; 84443; 84484; 85025; 87040; 87086; 93005; 93010; 93306; J0692; J1644; J1650; J2405; J2543; J3370; J3475; J3480; J3490; J7050; Q9967; U0003; U0005

== ENCOUNTER 2021-05-12 12:22 | Outpatient (CLI) | payer MEDICARE, MEDICAID | END 2021-05-12 12:23 | disposition home or self-care (01) | LOC: BICRAD 12:22 | PROVIDERS: ATTEND Nurse Practitioner Family | DX: Z09 Encounter for follow-up examination after completed treatment for conditions other than malignant neoplasm (principal); A41.9 Sepsis, unspecified organism; J96.00 Acute respiratory failure, unspecified whether with hypoxia or hypercapnia; I50.33 Acute on chronic diastolic (congestive) heart failure; R91.8 Other nonspecific abnormal finding of lung field | CPT/HCPCS: 71046 ==

== ENCOUNTER 2021-05-23 15:19 | Outpatient (CLI) | payer MEDICARE, MEDICAID | END 2021-05-23 15:20 | disposition home or self-care (01) | LOC: TBSIIMAG 15:19 | PROVIDERS: ATTEND Surgery | DX: D18.00 Hemangioma unspecified site (principal) | CPT/HCPCS: 70553 ==

== ENCOUNTER 2021-09-23 15:51 | Outpatient (CLI) | payer MEDICARE, MEDICAID | END 2021-09-23 15:52 | disposition home or self-care (01) | LOC: BICRAD 15:51 | PROVIDERS: ATTEND Nurse Practitioner Family | DX: J18.9 Pneumonia, unspecified organism (principal); I10 Essential (primary) hypertension | CPT/HCPCS: 71046 ==

== ENCOUNTER 2022-01-09 11:56 | Inpatient (IN) | payer MEDICARE, MEDICAID ==
[2022-01-09 13:02] LABS: #Lymphocytes 1.6 thou/uL (1.20-3.40); #Monocytes 0.6 thou/uL (0.11-0.59); #Neutrophils 4.8 thou/uL (1.40-6.50); %Basophils 0.4 % (0.0-1.0); %Eosinophils 0.4 % (0.0-10.0); %Lymphocytes 22.8 % (21.0-51.0); %Monocytes 8.4 % (0.0-10.0); Hemoglobin 10.7 g/dL (12.0-16.0); Mean Corpuscular HGB CONC 34.8 g/dL (32.0-36.0); Mean Corpuscular Hemoglobin 32.7 pg (27.0-31.0); Mean Platelet Volume 10.7 fL (7.4-10.4); Platelet Count 139 thou/uL (130-400); RBC Distribution Width 13.6 % (11.5-14.5); Red Blood Cell (RBC) Count 3.28 mill/uL (4.20-5.40); White Blood Cell (WBC) Count 7.1 thou/uL (4.8-10.8)
[2022-01-09 13:24] LABS: ALT (SGPT) Less than 7 U/L (8-55); AST (SGOT) 12 U/L (5-34); Albumin 3.7 g/dL (3.4-4.8); Alkaline Phosphatase 91 U/L (40-110); Anion Gap 18 mmol/L (10-20); BUN (Urea Nitrogen) 24 mg/dL (9.8-20.1); Bilirubin, Total 0.5 mg/dL (0.2-1.2); CK (CPK) 34 U/L (29-168); Calc. Creatinine Clearance 0 mL/min (70-130); Calcium 9.3 mg/dL (7.8-10.44); Carbon Dioxide 20 mmol/L (23-31); Chloride 104 mmol/L (98-107); Estimated GFR 34; Globulin 3.2 g/dL (2.4-3.5); Glucose 141 mg/dL (83-110); Lipase 16 U/L (8-78); Potassium 3.6 mmol/L (3.5-5.1); Protein, Total 6.9 g/dL (5.8-8.1); Sodium 138 mmol/L (136-145)
[2022-01-09 13:59] LABS: CKMB 1.2 ng/mL (0-6.6)
[2022-01-09 14:33] LABS: Bilirubin Negative (Negative); Blood, Urine Negative (Negative); Clarity Clear (Clear); Glucose, Urine (Dipstick) Normal (Negative); Ketone, Urine Negative (Negative); Leukocyte Negative Leu/uL (Negative); Nitrite Negative (Negative); Protein, Urine (Dipstick) 10 mg/dL (Neg-Trace); Specific Gravity, Urine 1.019 (1.002-1.036); Urobilinogen Normal mg/dL (Less than 2); pH, Urine 5.5 (5.0-9.0)
[2022-01-09 14:55] LABS: SARS-CoV-2 NAA Rapid Test Not Detected (NotDetected)
[2022-01-09 16:55] LABS: Troponin I 0.053 ng/mL (< 0.028)
[2022-01-09] MEDS ORDERED: Senokot S 8.6-50 MG TAB PO PRN (19:16)
[2022-01-09] MEDS ORDERED: Ondansetron PF 4 MG/2 ML Vial IVP PRN (19:16)
[2022-01-09] MEDS ORDERED: Ondansetron ODT 4 MG TAB PO PRN (19:16)
[2022-01-09] MEDS ORDERED: Bisacodyl 5 MG TAB PO PRN (19:16)
[2022-01-09 20:47] VITALS: BMI 24.5
[2022-01-09] MEDS: Sodium Chloride 0.9% 1,000 ML IV SCH (22:17)
[2022-01-09 22:20] LABS: Troponin I 0.059 ng/mL (< 0.028)
[2022-01-10 01:22] LABS: #Monocytes 0.7 thou/uL (0.11-0.59); #Neutrophils 4.7 thou/uL (1.40-6.50); %Basophils 0.5 % (0.0-1.0); %Eosinophils 0.6 % (0.0-10.0); %Lymphocytes 26.6 % (21.0-51.0); %Monocytes 8.8 % (0.0-10.0); %Neutrophils 63.5 % (42.0-75.0); Hemoglobin 10.3 g/dL (12.0-16.0); Mean Corpuscular HGB CONC 35.6 g/dL (32.0-36.0); Mean Corpuscular Hemoglobin 33.6 pg (27.0-31.0); Mean Corpuscular Volume 94.4 fL (78.0-98.0); Mean Platelet Volume 10.3 fL (7.4-10.4); Platelet Count 135 thou/uL (130-400); RBC Distribution Width 13.6 % (11.5-14.5); Red Blood Cell (RBC) Count 3.06 mill/uL (4.20-5.40); White Blood Cell (WBC) Count 7.4 thou/uL (4.8-10.8)
[2022-01-10] MEDS ORDERED: sulfaSALAzine 500 MG TAB PO SCH ×2 (01:30→08:00)
[2022-01-10] MEDS ORDERED: Gabapentin 300 MG CAP PO SCH ×2 (01:30→09:00)
[2022-01-10 01:36] LABS: Anion Gap 14 mmol/L (10-20); BUN (Urea Nitrogen) 24 mg/dL (9.8-20.1); Calc. Creatinine Clearance 40 mL/min (70-130); Calcium 8.9 mg/dL (7.8-10.44); Carbon Dioxide 21 mmol/L (23-31); Chloride 107 mmol/L (98-107); Estimated GFR 47; Glucose 131 mg/dL (83-110); Potassium 3.6 mmol/L (3.5-5.1); Sodium 138 mmol/L (136-145)
[2022-01-10] MEDS: tiZANidine HCl 4 MG TAB PO PRN (01:38)
[2022-01-10 01:40] LABS: Troponin I 0.061 ng/mL (< 0.028)
[2022-01-10 05:26] LABS: Troponin I 0.053 ng/mL (< 0.028)
[2022-01-10] MEDS: Gabapentin 300 MG CAP PO SCH ×2 (08:54→21:10)
[2022-01-10] MEDS: sulfaSALAzine 500 MG TAB PO SCH ×2 (08:55→16:55)
[2022-01-10] MEDS: Allopurinol 100 MG TAB PO SCH (08:55)
[2022-01-10] MEDS: Carvedilol 6.25 MG TAB PO SCH ×2 (08:55→16:55)
[2022-01-10] MEDS: Donepezil HCl 5 MG TAB PO SCH (08:55)
[2022-01-10] MEDS: Amlodipine 5 MG TAB PO SCH (08:55)
[2022-01-10] MEDS: Aspirin 81 mg Enteric Coated Tablet PO SCH (08:55)
[2022-01-10] MEDS: Carbidopa/Levodopa 25-100 mg Tablet PO SCH ×3 (08:55→21:09)
[2022-01-10] MEDS: Enoxaparin Sodium 30 MG/0.3 ML SYRINGE SC SCH (08:56)
[2022-01-10] MEDS: Sodium Chloride 0.9% 1,000 ML IV SCH ×2 (08:56→18:34)
[2022-01-10 09:03] LABS: Troponin I 0.051 ng/mL (< 0.028)
[2022-01-10] MEDS: Acetaminophen 325 MG TAB PO PRN ×2 (16:59→21:16)
[2022-01-10] MEDS: Atorvastatin Calcium 40 MG TAB PO SCH (21:09)
[2022-01-11 05:10] LABS: Anion Gap 14 mmol/L (10-20); BUN (Urea Nitrogen) 22 mg/dL (9.8-20.1); Calc. Creatinine Clearance 57 mL/min (70-130); Calcium 8.6 mg/dL (7.8-10.44); Carbon Dioxide 16 mmol/L (23-31); Chloride 111 mmol/L (98-107); Estimated GFR 71; Glucose 112 mg/dL (83-110); Potassium 4.3 mmol/L (3.5-5.1); Sodium 137 mmol/L (136-145)
[2022-01-11 07:29] LABS: Troponin I 0.037 ng/mL (< 0.028)
[2022-01-11] MEDS ORDERED: Enoxaparin Sodium 40 MG/0.4 ML SYRINGE SC SCH (09:15)
[2022-01-11] MEDS: Donepezil HCl 5 MG TAB PO SCH (10:05)
[2022-01-11] MEDS: Aspirin 81 mg Enteric Coated Tablet PO SCH (10:05)
[2022-01-11] MEDS: Allopurinol 100 MG TAB PO SCH (10:05)
[2022-01-11] MEDS: Amlodipine 5 MG TAB PO SCH (10:05)
[2022-01-11] MEDS: Carbidopa/Levodopa 25-100 mg Tablet PO SCH ×3 (10:05→21:02)
[2022-01-11] MEDS: Gabapentin 300 MG CAP PO SCH ×2 (10:06→21:02)
[2022-01-11] MEDS: sulfaSALAzine 500 MG TAB PO SCH ×2 (10:06→16:41)
[2022-01-11] MEDS: Carvedilol 6.25 MG TAB PO SCH ×2 (10:06→16:41)
[2022-01-11] MEDS: Enoxaparin Sodium 30 MG/0.3 ML SYRINGE SC SCH (10:13)
[2022-01-11] MEDS: Acetaminophen 325 MG TAB PO PRN ×2 (11:33→21:01)
[2022-01-11] MEDS: Sodium Chloride 0.9% 1,000 ML IV SCH (11:33)
[2022-01-11] MEDS: Atorvastatin Calcium 40 MG TAB PO SCH (21:02)
[2022-01-12] MEDS: Acetaminophen 325 MG TAB PO PRN ×4 (04:08→20:42)
[2022-01-12] MEDS: Aspirin 81 mg Enteric Coated Tablet PO SCH (10:13)
[2022-01-12] MEDS: Enoxaparin Sodium 40 MG/0.4 ML SYRINGE SC SCH ×2 (10:13→10:24)
[2022-01-12] MEDS: Donepezil HCl 5 MG TAB PO SCH (10:13)
[2022-01-12] MEDS: Gabapentin 300 MG CAP PO SCH ×2 (10:13→20:43)
[2022-01-12] MEDS: Allopurinol 100 MG TAB PO SCH (10:13)
[2022-01-12] MEDS: sulfaSALAzine 500 MG TAB PO SCH ×2 (10:13→17:13)
[2022-01-12] MEDS: Amlodipine 5 MG TAB PO SCH (10:13)
[2022-01-12] MEDS: FLUoxetine HCl 20 MG CAP PO SCH (10:13)
[2022-01-12] MEDS: Carvedilol 6.25 MG TAB PO SCH ×2 (10:13→17:13)
[2022-01-12] MEDS: Carbidopa/Levodopa 25-100 mg Tablet PO SCH ×3 (10:13→20:42)
[2022-01-12] MEDS: Atorvastatin Calcium 40 MG TAB PO SCH (20:42)
[2022-01-12] MEDS: tiZANidine HCl 4 MG TAB PO PRN (20:43)
[2022-01-13] MEDS: FLUoxetine HCl 20 MG CAP PO SCH (09:27)
[2022-01-13] MEDS: Donepezil HCl 5 MG TAB PO SCH (09:27)
[2022-01-13] MEDS: Aspirin 81 mg Enteric Coated Tablet PO SCH (09:27)
[2022-01-13] MEDS: Allopurinol 100 MG TAB PO SCH (09:27)
[2022-01-13] MEDS: Carbidopa/Levodopa 25-100 mg Tablet PO SCH ×3 (09:27→20:44)
[2022-01-13] MEDS: sulfaSALAzine 500 MG TAB PO SCH ×2 (09:27→16:19)
[2022-01-13] MEDS: Enoxaparin Sodium 40 MG/0.4 ML SYRINGE SC SCH (09:27)
[2022-01-13] MEDS: Carvedilol 6.25 MG TAB PO SCH ×2 (09:27→16:19)
[2022-01-13] MEDS: Amlodipine 5 MG TAB PO SCH (09:27)
[2022-01-13] MEDS: Gabapentin 300 MG CAP PO SCH ×2 (09:27→20:45)
[2022-01-13] MEDS: Acetaminophen 325 MG TAB PO PRN ×2 (09:28→20:45)
[2022-01-13] MEDS: Atorvastatin Calcium 40 MG TAB PO SCH (20:44)
[2022-01-13] MEDS: tiZANidine HCl 4 MG TAB PO PRN (20:45)
[2022-01-14] MEDS: Carbidopa/Levodopa 25-100 mg Tablet PO SCH ×3 (09:18→22:26)
[2022-01-14] MEDS: FLUoxetine HCl 20 MG CAP PO SCH (09:19)
[2022-01-14] MEDS: Amlodipine 5 MG TAB PO SCH (09:19)
[2022-01-14] MEDS: Aspirin 81 mg Enteric Coated Tablet PO SCH (09:19)
[2022-01-14] MEDS: Gabapentin 300 MG CAP PO SCH ×2 (09:19→22:25)
[2022-01-14] MEDS: Carvedilol 6.25 MG TAB PO SCH ×2 (09:20→16:13)
[2022-01-14] MEDS: Allopurinol 100 MG TAB PO SCH (09:20)
[2022-01-14] MEDS: Donepezil HCl 5 MG TAB PO SCH (09:20)
[2022-01-14] MEDS: Enoxaparin Sodium 40 MG/0.4 ML SYRINGE SC SCH (09:21)
[2022-01-14] MEDS: sulfaSALAzine 500 MG TAB PO SCH ×2 (09:38→16:13)
[2022-01-14] MEDS: Atorvastatin Calcium 40 MG TAB PO SCH (22:26)
[2022-01-15] MEDS: Donepezil HCl 5 MG TAB PO SCH (09:07)
[2022-01-15] MEDS: Carbidopa/Levodopa 25-100 mg Tablet PO SCH ×3 (09:07→20:42)
[2022-01-15] MEDS: Allopurinol 100 MG TAB PO SCH (09:07)
[2022-01-15] MEDS: FLUoxetine HCl 20 MG CAP PO SCH (09:08)
[2022-01-15] MEDS: Gabapentin 300 MG CAP PO SCH ×2 (09:09→20:42)
[2022-01-15] MEDS: Amlodipine 5 MG TAB PO SCH (09:09)
[2022-01-15] MEDS: sulfaSALAzine 500 MG TAB PO SCH ×2 (09:10→19:10)
[2022-01-15] MEDS: Aspirin 81 mg Enteric Coated Tablet PO SCH (09:11)
[2022-01-15] MEDS: Enoxaparin Sodium 40 MG/0.4 ML SYRINGE SC SCH (09:11)
[2022-01-15] MEDS: Carvedilol 6.25 MG TAB PO SCH ×2 (09:15→19:10)
[2022-01-15] MEDS: Atorvastatin Calcium 40 MG TAB PO SCH (20:42)
[2022-01-15] MEDS: Acetaminophen 325 MG TAB PO PRN (20:43)
[2022-01-15] MEDS: tiZANidine HCl 4 MG TAB PO PRN (23:45)
[2022-01-16] MEDS: Carbidopa/Levodopa 25-100 mg Tablet PO SCH ×2 (09:29→16:09)
[2022-01-16] MEDS: FLUoxetine HCl 20 MG CAP PO SCH (09:29)
[2022-01-16] MEDS: Carvedilol 6.25 MG TAB PO SCH ×2 (09:29→17:38)
[2022-01-16] MEDS: sulfaSALAzine 500 MG TAB PO SCH ×2 (09:30→17:38)
[2022-01-16] MEDS: Gabapentin 300 MG CAP PO SCH (09:30)
[2022-01-16] MEDS: Enoxaparin Sodium 40 MG/0.4 ML SYRINGE SC SCH (09:30)
[2022-01-16] MEDS: Donepezil HCl 5 MG TAB PO SCH (09:30)
[2022-01-16] MEDS: Allopurinol 100 MG TAB PO SCH (09:30)
[2022-01-16] MEDS: Aspirin 81 mg Enteric Coated Tablet PO SCH (09:30)
[2022-01-16] MEDS: Amlodipine 5 MG TAB PO SCH (09:30)
[2022-01-16] MEDS: Acetaminophen 325 MG TAB PO PRN ×2 (12:05→16:09)
[2022-01-16 17:51] VITALS: BP 131/61; TEMP 97.8
== END 2022-01-16 19:13 | DRG 683 ==
LOC: ERS 11:56 → ERHOLD 17:31 → 2NO 20:15 → OBSVTOIN 01-11 12:36 → SURG A 01-15 16:15
PROVIDERS: ADMIT Family Medicine; ATTEND Family Medicine
DX: N17.9 Acute kidney failure, unspecified (principal); I13.0 Hypertensive heart and chronic kidney disease with heart failure and stage 1 through stage 4 chronic kidney disease, or unspecified chronic kidney disease; I50.32 Chronic diastolic (congestive) heart failure; Z66 Do not resuscitate; Z20.822 Contact with and (suspected) exposure to COVID-19; R77.8 Other specified abnormalities of plasma proteins; N18.9 Chronic kidney disease, unspecified; D63.1 Anemia in chronic kidney disease; K21.9 Gastro-esophageal reflux disease without esophagitis; G20 Parkinson's disease; F02.80 Dementia in other diseases classified elsewhere, unspecified severity, without behavioral disturbance, psychotic disturbance, mood disturbance, and anxiety; M48.061 Spinal stenosis, lumbar region without neurogenic claudication; R29.6 Repeated falls; E78.2 Mixed hyperlipidemia; M10.9 Gout, unspecified; M19.90 Unspecified osteoarthritis, unspecified site; M06.9 Rheumatoid arthritis, unspecified; E86.0 Dehydration; Z88.8 Allergy status to other drugs, medicaments and biological substances; Z88.5 Allergy status to narcotic agent; Z91.018 Allergy to other foods; Z91.010 Allergy to peanuts; Z86.73 Personal history of transient ischemic attack (TIA), and cerebral infarction without residual deficits; Z91.81 History of falling; Z79.899 Other long term (current) drug therapy; Z79.82 Long term (current) use of aspirin; Z98.41 Cataract extraction status, right eye; Z90.49 Acquired absence of other specified parts of digestive tract; Z98.890 Other specified postprocedural states; Z90.710 Acquired absence of both cervix and uterus
CPT/HCPCS: 36415; 70551; 80048; 80053; 81003; 82550; 82553; 83605; 83690; 83880; 84484; 85025; 87040; 93005; 93306; 93880; 94760; 96372; G0378; J1650; J7050; U0002

== ENCOUNTER 2022-06-05 16:25 | Emergency (ER) | payer MEDICARE, MEDICAID ==
[2022-06-05] MEDS ORDERED: Ketorolac Tromethamine 30 MG/ML VIAL ONE (17:27)
[2022-06-05] MEDS ORDERED: Acetaminophen 500 MG TAB ONE (17:27)
[2022-06-05 18:04] LABS: #Basophils 0.1 thou/uL (0.0-0.2); #Lymphocytes 2.2 thou/uL (1.20-3.40); #Monocytes 0.6 thou/uL (0.11-0.59); #Neutrophils 3.5 thou/uL (1.40-6.50); %Basophils 1.6 % (0.0-1.0); %Eosinophils 0.5 % (0.0-10.0); %Neutrophils 54.9 % (42.0-75.0); Hemoglobin 10.4 g/dL (12.0-16.0); Mean Corpuscular HGB CONC 35.1 g/dL (32.0-36.0); Mean Corpuscular Hemoglobin 32.5 pg (27.0-31.0); Mean Corpuscular Volume 92.6 fl (78.0-98.0); Mean Platelet Volume 11.2 fL (7.4-10.4); Platelet Count 123 10x3/uL (130-400); RBC Distribution Width 14.1 % (11.5-14.5); Red Blood Cell (RBC) Count 3.21 mill/uL (4.20-5.40); White Blood Cell (WBC) Count 6.5 10x3/uL (4.8-10.8)
[2022-06-05 18:24] LABS: ALT (SGPT) Less than 7 U/L (8-55); AST (SGOT) 11 U/L (5-34); Albumin 3.5 g/dL (3.4-4.8); Alkaline Phosphatase 88 U/L (40-110); Anion Gap 10 mmol/L (10-20); BUN (Urea Nitrogen) 23 mg/dL (9.8-20.1); Bilirubin, Total 0.3 mg/dL (0.2-1.2); Calc. Creatinine Clearance 0 mL/min (70-130); Calcium 8.7 mg/dL (7.8-10.44); Carbon Dioxide 25 mmol/L (23-31); Chloride 108 mmol/L (98-107); Estimated GFR 37; Globulin 2.9 g/dL (2.4-3.5); Glucose 107 mg/dL (83-110); Potassium 3.6 mmol/L (3.5-5.1); Protein, Total 6.4 g/dL (5.8-8.1); Sodium 139 mmol/L (136-145)
== END 2022-06-05 20:40 ==
LOC: ERS 16:25
DX: M17.0 Bilateral primary osteoarthritis of knee (principal); E78.5 Hyperlipidemia, unspecified; I11.0 Hypertensive heart disease with heart failure; I50.9 Heart failure, unspecified; K21.9 Gastro-esophageal reflux disease without esophagitis; Z79.82 Long term (current) use of aspirin; Z79.899 Other long term (current) drug therapy
CPT/HCPCS: 36415; 80053; 83880; 85025; 96372; J1885

== ENCOUNTER 2022-06-25 20:45 | Emergency (ER) | payer MEDICARE, MEDICAID ==
[~2022-06-25 20:45] MED LIST changes: -Gadobenate Dimeglumine 529 MG/1 ML (20ML VIAL) ONE; +Iopamidol-370 76% 500 ML 1 ML ONE
[2022-06-25 21:27] LABS: #Basophils 0.1 thou/uL (0.0-0.2); #Eosinphils 0.1 thou/uL (0.0-0.7); #Monocytes 0.6 thou/uL (0.11-0.59); #Neutrophils 3.2 thou/uL (1.40-6.50); %Basophils 1.2 % (0.0-1.0); %Eosinophils 0.9 % (0.0-10.0); %Monocytes 10.2 % (0.0-10.0); %Neutrophils 53.7 % (42.0-75.0); Hemoglobin 10.9 g/dL (12.0-16.0); Mean Corpuscular HGB CONC 36.1 g/dL (32.0-36.0); Mean Corpuscular Hemoglobin 33.6 pg (27.0-31.0); Mean Corpuscular Volume 93.2 fl (78.0-98.0); Mean Platelet Volume 10.4 fL (7.4-10.4); Platelet Count 161 10x3/uL (130-400); RBC Distribution Width 13.7 % (11.5-14.5); Red Blood Cell (RBC) Count 3.25 mill/uL (4.20-5.40)
[2022-06-25 21:57] LABS: ALT (SGPT) Less than 7 U/L (8-55); AST (SGOT) 23 U/L (5-34); Albumin 3.9 g/dL (3.4-4.8); Alkaline Phosphatase 97 U/L (40-110); Anion Gap 12 mmol/L (10-20); BUN (Urea Nitrogen) 15 mg/dL (9.8-20.1); Bilirubin, Total 0.3 mg/dL (0.2-1.2); Calc. Creatinine Clearance 0 mL/min (70-130); Calcium 9.4 mg/dL (7.8-10.44); Carbon Dioxide 27 mmol/L (23-31); Chloride 103 mmol/L (98-107); Estimated GFR 54; Globulin 3.5 g/dL (2.4-3.5); Glucose 93 mg/dL (83-110); Lipase 29 U/L (8-78); Potassium 3.9 mmol/L (3.5-5.1); Protein, Total 7.4 g/dL (5.8-8.1); Sodium 138 mmol/L (136-145)
== END 2022-06-26 00:55 | disposition home or self-care (01) ==
LOC: ERS 20:45
DX: R10.32 Left lower quadrant pain (principal); I11.0 Hypertensive heart disease with heart failure; I50.9 Heart failure, unspecified; E78.5 Hyperlipidemia, unspecified; K21.9 Gastro-esophageal reflux disease without esophagitis; Z79.899 Other long term (current) drug therapy
CPT/HCPCS: 74177; 80053; 83605; 83690; 84484; 85025; 93005; Q9967

== ENCOUNTER 2022-12-07 13:19 | Emergency (ER) | payer MEDICARE, MEDICAID ==
[2022-12-07 13:58] LABS: #Monocytes 0.5 thou/uL (0.11-0.59); #Neutrophils 3.1 thou/uL (1.40-6.50); %Basophils 0.4 % (0.0-1.0); %Eosinophils 0.4 % (0.0-10.0); %Lymphocytes 27.8 % (21.0-51.0); %Monocytes 9.1 % (0.0-10.0); %Neutrophils 62.1 % (42.0-75.0); Hemoglobin 11.1 g/dL (12.0-16.0); Mean Corpuscular Hemoglobin 31.8 pg (27.0-31.0); Mean Corpuscular Volume 88.3 fl (78.0-98.0); Mean Platelet Volume 11.5 fL (7.4-10.4); Platelet Count 163 10x3/uL (130-400); RBC Distribution Width 14.5 % (11.5-14.5); Red Blood Cell (RBC) Count 3.49 mill/uL (4.20-5.40); White Blood Cell (WBC) Count 4.9 10x3/uL (4.8-10.8)
[2022-12-07 14:24] LABS: ALT (SGPT) Less than 7 U/L (8-55); AST (SGOT) 13 U/L (5-34); Albumin 3.6 g/dL (3.4-4.8); Alkaline Phosphatase 102 U/L (40-110); Anion Gap 11 mmol/L (10-20); BUN (Urea Nitrogen) 23 mg/dL (9.8-20.1); Bilirubin, Total 0.2 mg/dL (0.2-1.2); Calc. Creatinine Clearance 0 mL/min (70-130); Calcium 9.8 mg/dL (7.8-10.44); Carbon Dioxide 24 mmol/L (23-31); Chloride 106 mmol/L (98-107); Estimated GFR 52; Globulin 4.1 g/dL (2.4-3.5); Glucose 109 mg/dL (83-110); Potassium 4.7 mmol/L (3.5-5.1); Protein, Total 7.7 g/dL (5.8-8.1); Sodium 136 mmol/L (136-145)
[2022-12-07] MEDS ORDERED: Ketorolac Tromethamine 30 MG/ML VIAL ONE (16:42)
[2022-12-07] MEDS ORDERED: Acetaminophen 500 MG TAB ONE (16:42)
== END 2022-12-07 17:30 | disposition home or self-care (01) ==
LOC: ERS 13:19
DX: M79.605 Pain in left leg (principal); Z30.431 Encounter for routine checking of intrauterine contraceptive device; I50.9 Heart failure, unspecified; K21.9 Gastro-esophageal reflux disease without esophagitis; I11.0 Hypertensive heart disease with heart failure; E78.5 Hyperlipidemia, unspecified; Z79.899 Other long term (current) drug therapy
CPT/HCPCS: 36415; 80053; 85025; 85652; 86140; J1885